=== PATIENT | male | born 1965 | race Caucasian/White ===

== ENCOUNTER 2016-04-19 08:00 | Emergency (ER) | payer OTHER ==
[2016-04-19 08:19] VITALS: BP 130/81
--- NOTE | 2016-04-19 08:39 | UC ---
Respiratory Complaint HPI - HPI Summary HPI Summary: dry cough for 2 weeks, no fever, no vomiting. Gradual onset of "heaviness" and discomfort in right chest, radiates to right scapula. It's there all the time, but worse with exertion. 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 No flu shot. Feels fatigued all day for past few weeks. Good appetite. No extremity swelling. No phlegm production, but frequent dry, harsh cough. No ST or sinus congestion. - History of Current Complaint Chief Complaint: UCChestPain Stated Complaint: CONGESTION DRY COUGH Time Seen by Provider: 04/19/16 08:27 Hx Obtained From: Patient Onset/Duration: Gradual Onset, Lasting Weeks - 2 Timing: Constant Severity Initially: Mild Severity Currently: Moderate Character: Cough: Nonproductive Aggravating Factors: Exertion, Recumbent Position - doesn't sleep well, wakes with cough and this right chest discomfort Alleviating Factors: Nothing Associated Signs And Symptoms: Positive: Dyspnea - with exertion, Pleuritic Chest Pain - right side, URI. Negative: Fever, Chills, Wheezing, Hemoptysis, Dizziness, Edema, Nasal Congestion, Hoarseness, Sinus Discomfort - Risk Factors Pulmonary Embolism Risk Factors: Negative Cardiac Risk Factors: Negative Pseudomonas Risk Factors: Negative Tuberculosis Risk Factors: Negative - Allergies/Home Medications Allergies/Adverse Reactions: Allergies Allergy/AdvReac Type Severity Reaction Status Date / Time No Known Allergies Allergy Verified 04/19/16 08:17 Home Medications: Home Medications Aspirin EC Low Dose* [Ecotrin EC Low Dose*] 81 mg PO DAILY 04/19/16 [History Confirmed 04/19/16] Valsartan TAB* [Diovan TAB*] 40 mg PO DAILY 04/19/16 [History Confirmed 04/19/16 ] PMH/Surg Hx/FS Hx/Imm Hx Cardiovascular History Of: Reports: Hypertension Respiratory History Of: Reports: Bronchitis - Surgical History Surgical History: None - Family History Known Family History: Positive: Hypertension - Social History 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 Lives: With Family Alcohol Use: None Substance Use Type: None Smoking Status (MU): Never Smoked Tobacco - Immunization History Most Recent Influenza Vaccination: Not the 2015/2016 Season Review of Systems Constitutional: Fatigue Skin: Negative Eyes: Negative ENT: Negative Respiratory: Shortness Of Breath - with exertion, Cough Cardiovascular: Negative - right side, through to right scapula, worse with cough or deep breath or exertion, Chest Pain Gastrointestinal: Negative Genitourinary: Negative Motor: Negative Neurovascular: Negative Musculoskeletal: Negative Neurological: Negative Psychological: Negative All Other Systems Reviewed And Are Negative: Yes Physical Exam Triage Information Reviewed: Yes Appearance: Well-Appearing, No Pain Distress, Well-Nourished Vital Signs: Initial Vital Signs Temp 98.7 F 04/19/16 08:12 Pulse 76 04/19/16 08:12 Resp 16 04/19/16 08:12 BP 130/81 04/19/16 08:12 Pulse Ox 100 04/19/16 08:12 Vital Signs Reviewed: Yes Eye Exam: Normal Neck exam: Normal Respiratory: Positive: Chest non-tender, No respiratory distress, No accessory muscle use, Respiratory distress, Decreased breath sounds - right base. Negative: Accessory muscle use, Crackles, Rhonchi, Stridor, Wheezing, Expiration , Inspiration, Plerual rub Cardiovascular Exam: Normal Abdominal Exam: Normal Musculoskeletal Exam: Normal Neurological Exam: Normal Neurological: Positive: Alert, Muscle Tone Normal Psychological Exam: Normal Skin Exam: Normal UC Diagnostic Evaluation - Laboratory O2 Sat by Pulse Oximetry: 100 Diagnostic Studies Comment: CXR normal; EKG unremarkable Respiratory Course/Dx - Differential Dx/Diagnosis Provider Diagnoses: pleurisy Discharge - Discharge Plan Condition: Stable Disposition: HOME Prescriptions: Meloxicam [Mobic] 15 mg PO DAILY PRN #20 tab PRN Reason: Pain Patient Education Materials: Pleurisy (ED) Forms: *Work Release Referrals: Robin Carranza MD [Primary Care Provider] -
--- NOTE | 2016-04-19 08:59 | RAD ---
INDICATION: Cough. Short of breath. COMPARISON: 2014 TECHNIQUE: PA and lateral dual-energy views were obtained. FINDINGS: Bones/Soft Tissues: There are no acute bony findings. There is kyphosis Cardiomediastinal: The cardiomediastinal silhouette is normal. Lungs: There are no infiltrates. Pleura: There are no pleural effusions. Other: None IMPRESSION: NO ACTIVE DISEASE.
== END 2016-04-19 09:17 | disposition home or self-care (01) ==
LOC: UCCORT 08:00
DX: R09.1 Pleurisy (principal); I10 Essential (primary) hypertension; Z79.82 Long term (current) use of aspirin
CPT/HCPCS: 71020; 93005; 99212; G0463

== ENCOUNTER 2018-09-09 15:56 | Emergency (ER) | payer OTHER ==
--- OUTSIDE RECORDS SUMMARY | 2018-09-09 16:11 | XMS REPORT | Continuity of Care Document ---
:1965 External Reference #:[id number] Author Name Della Schwarz Care Team Providers Name Role Phone Wyatt Sinha MD Primary Care Physician Unavailable Payers Date Identification Numbers Payment Provider Subscriber Policy Number: [id number] [facility] Judith Hemphill Group Number: [id number] [address] Group Name: [place] [address] PayID: [id number] Expires: 2017 Policy Number: [id number] [employer] Judith Hemphill Group Number: [id number] [address] Group Name: [place] [address] PayID: [id number] Effective: 1995 Policy Number: [employer] - Injury Judith Hemphill [id number] Compensation Onset: 1995 Group Name: Workers' Compensation [address] [place] [address] Effective: 2000 Group Number: OWCP # [employer] Injury Compensation Judith Hemphill [id number] Group Name: Workers' Compensation [address] [place] [address] Problems Active Problems Provider Date Lesion of ulnar nerve Loc Deleon MD Onset: 10/21/2017 Family History Date Family Member(s) Observation Comments General Arthritis, Osteo General Arthritis General Mother-heart disease,HTN,numerous shortly after surgery polyps removed from stomach and she General paternal grandmother-breast cancer General maternal grandmother-cancer General Brother(celeste)-[place] General Brother 1: due to Heart Attack Father Arthritis, Osteo Father Arthritis Father Heart Disease Mother due to Subsequent () - Gastric Polyps,removed stomach Mother Arthritis Mother Arthritis, Osteo Social History Type Date Description Comments Sex Unknown Marital Status Lives With Daughter Occupation [employer] Full-Time Employment Tobacco Use Start: Unknown Never Smoked Cigarettes ETOH Use Denies alcohol use Tobacco Use Reviewed: 01/10/17 Patient has never smoked Recreational Drug Use Denies Drug Use Smoking Status Reviewed: 08/29/18 Patient has never smoked Exercise Type/Frequency Exercises regularly Allergies, Adverse Reactions, Alerts Description No Known Drug Allergies Medications Active Medications SIG Qnty Indications Ordering Date Provider Plaquenil 1 by mouth every 30tabs Robin Herring, 08/29/2018 200mg Tablets day for 1 week M.D. then 2 by mouth daily ongoing Levothyroxine Sodium 1 by mouth every 90tabs Robin Herring, 11/08/2017 day M.D. 50mcg Tablets Compression Stockings please use daily 2units I83.891 Robin Herring, 07/29 as needed for M.D. Misc leg/foot swelling Ibuprofen 1 tab by mouth as Unknown 200mg Tablets needed three times daily History Medications Fluoxetine HCL 1 daily by 30tabs F41.9 Robin 01/19/2018 - 10mg mouth for 2 MD Dillon 08/29/2018 Tablets weeks the 1/2 tablet until finished Fluoxetine HCL (PMDD) 1 by mouth 30caps F41.9 Robin 01/02/2018 - every day MD Dillon 01/19/2018 20mg Capsules Omeprazole 1 by mouth bid 60caps Robin 11/18/2017 - 40mg Capsules MD Dillon 08/29/2018 Fluoxetine HCL (PMDD) 1 tablets 30tabs Robin 11/09/2017 - daily (start MD Dillon 01/02/2018 20mg Tablets with 1/2 tablet for the first week) Zolpidem Tartrate 1 every night 30tabs G47.00 Robin 10/27/2017 - 10mg at bedtime MD Dillon 08/29/2018 Tablets Losartan Potassium 1 by mouth 90tabs Robin 09/15/2017 - 50mg every day MD Dillon 11/18/2017 Tablets Zolpidem Tartrate 1 at bedtime 90tabs G47.00 Robin 05/18/2017 - 5mg MD Dillon 10/27/2017 Tablets Trazodone HCL 1 by mouth 90tabs G47.00 Robin 01/10/2017 - 50mg every day MD Dillon 11/18/2017 Tablets Naproxen 1 by mouth 60tabs M62.830 Robin 06/09/2016 - 500mg Tablets twice a day MD Dillon 06/22/2016 Cyclobenzaprine HCL 1 by mouth at 30tabs M62.830 Robin 06/09/2016 - 5mg hs MD Dillon 06/22/2016 Tablets Levoxyl 1 by mouth 30tabs G47.00 Robin 06/09/2016 - 75mcg Tablets every day MD Dillon 12/13/2016 Valsartan 1 by mouth 90tabs I10 Robin 04/15/2016 - 40mg Tablets every day MD Dillon 09/15/2017 Aspir-81 1 po qd Robin 01/18/2011 - 81mg Tablets DR Dillon MD 08/29/2018 Niaspan 1 tab by mouth 90tabs Robin 01/18/2011 - 500mg Tablets ER every day MD Dillon 01/18/2011 Zolpidem Tartrate 1 tab by mouth Unknown - 5mg weekly (rare) 02/16/2018 Tablets Trazodone HCL 1 tablet at Unknown - 50mg bedtime as 07/29/2017 Tablets needed Valsartan 1 by mouth Unknown - 50mg Tablets every day 10/20/2017 Aspir-Low 1 by mouth Unknown - 81mg Tablets DR every day (on 02/16/2018 hold) Diphenhydramine HCL Unknown - 50mg 10/20/2017 Capsules Multivitamin Men 50+ on occasion Unknown - Men 02/16/2018 50+ Tablets Melatonin 1 tablets at Unknown - 5mg Capsules bed time, as 02/16/2018 needed Losartan Potassium 1 by mouth Unknown - 50mg every day (on 02/16/2018 Tablets hold) Levothyroxine Sodium 1 by mouth Unknown - every day 08/29/2018 50mcg Tablets Fluoxetine HCL (PMDD) once daily Unknown - 08/29/2018 20mg Capsules BaclMarian Miramontes NP - 10mg Tablets 06/22/2016 Meloxicam Unknown - 15mg Tablets 01/10/2017 Baclofen Marian Oscar [employer] - 10mg Tablets 01/10/2017 Immunizations CPT Code Status Date Vaccine Lot # [id number] Given 03/12/2013 Tdap - Tetanus/Diptheria/Acellular Pertussis Vital Signs Date Vital Result Comment 08/29/2018 9:50am Height 70 inches 5'10" Weight 199.25 lb Heart Rate 83 /min BP Systolic Sitting 140 mmHg BP Diastolic Sitting 82 mmHg Pain Level 6 O2 % BldC Oximetry 99 % BMI (Body Mass Index) 28.6 kg/m2 02/16/2018 8:49am Height 70 inches 5'10" Weight 196.25 lb Heart Rate 84 /min BP Systolic Sitting 118 mmHg BP Diastolic Sitting 80 mmHg Pain Level 4 O2 % BldC Oximetry 98 % BMI (Body Mass Index) 28.2 kg/m2 01/19/2018 2:55pm Weight 189.00 lb BP Systolic 128 mmHg BP Diastolic 80 mmHg 12/15/2017 8:48am Weight 183.00 lb BP Systolic 138 mmHg BP Diastolic 82 mmHg Body Temperature 97.8 F 12/09/2017 11:42am Height 70 inches 5'10" Weight 181.00 lb BP Systolic Sitting 118 mmHg BP Diastolic Sitting 68 mmHg Respiratory Rate 17 /min Pain Level 0 BMI (Body Mass Index) 26.0 kg/m2 11/30/2017 11:08am Height 70 inches 5'10" Weight 181.00 lb Heart Rate 76 /min BP Systolic 126 mmHg BP Diastolic 82 mmHg Respiratory Rate 14 /min BMI (Body Mass Index) 26.0 kg/m2 11/28/2017 4:36pm Height 70 inches 5'10" Weight 181.00 lb Heart Rate 72 /min BP Systolic Sitting 130 mmHg BP Diastolic Sitting 85 mmHg Respiratory Rate 14 /min Pain Level 4 BMI (Body Mass Index) 26.0 kg/m2 11/23/2017 11:49am Weight 175.00 lb Heart Rate 80 /min BP Systolic 110 mmHg BP Diastolic 72 mmHg Respiratory Rate 16 /min 11/18/2017 9:42am Weight 178.12 lb Heart Rate 81 /min BP Systolic 100 mmHg BP Diastolic 80 mmHg Body Temperature 98.2 F 11/11/2017 8:47am Height 70 inches 5'10" Weight 181.00 lb Heart Rate 84 /min BP Systolic 126 mmHg BP Diastolic 84 mmHg BMI (Body Mass Index) 26.0 kg/m2 11/08/2017 8:16am Weight 179.00 lb Heart Rate 119 /min BP Systolic 110 mmHg BP Diastolic 84 mmHg Respiratory Rate 20 /min 10/31/2017 12:22pm Weight 186.00 lb Heart Rate 120 /min BP Systolic 120 mmHg BP Diastolic 90 mmHg Respiratory Rate 18 /min 10/26/2017 1:46pm Weight 189.00 lb Heart Rate 122 /min BP Systolic 132 mmHg BP Diastolic 90 mmHg Respiratory Rate 18 /min Body Temperature 99.1 F 10/21/2017 9:07am Height 70 inches 5'10" Weight 192.00 lb Heart Rate 73 /min BP Systolic 118 mmHg BP Diastolic 80 mmHg Respiratory Rate 16 /min Pain Level 5 O2 % BldC Oximetry 98 % BMI (Body Mass Index) 27.5 kg/m2 09/14/2017 10:09am Height 72 inches 6'0" Weight 194.00 lb Heart Rate 86 /min BP Systolic Sitting 125 mmHg BP Diastolic Sitting 84 mmHg Respiratory Rate 14 /min Pain Level 6 BMI (Body Mass Index) 26.3 kg/m2 07/29/2017 9:44am Height 72 inches 6'0" Weight 188.00 lb Heart Rate 78 /min BP Systolic Sitting 134 mmHg BP Diastolic Sitting 94 mmHg Respiratory Rate 14 /min Pain Level 3 BMI (Body Mass Index) 25.5 kg/m2 06/01/2017 2:25pm Weight 184.00 lb 05/18/2017 4:56pm BP Systolic 102 mmHg BP Diastolic 82 mmHg 04/28/2017 9:34am Height 71 inches Weight 179.00 lb BP Systolic 118 mmHg BP Diastolic 82 mmHg BMI (Body Mass Index) 25.0 kg/m2 04/12/2017 9:48am Height 71 inches Weight 185.00 lb Heart Rate 60 /min BP Systolic 120 mmHg BP Diastolic 82 mmHg Respiratory Rate 16 /min BMI (Body Mass Index) 25.8 kg/m2 02/03/2017 9:49am Weight 182.00 lb BP Systolic 118 mmHg BP Diastolic 72 mmHg 01/10/2017 1:31pm Weight 188.00 lb BP Systolic 110 mmHg BP Diastolic 80 mmHg 11/19/2016 9:49am Weight 189.50 lb BP Systolic 110 mmHg BP Diastolic 80 mmHg 08/03/2016 2:42pm Weight 188.00 lb BP Systolic 110 mmHg BP Diastolic 80 mmHg 07/13/2016 11:58am Weight 188.00 lb 06/22/2016 3:16pm Weight 189.00 lb BP Systolic 110 mmHg BP Diastolic 72 mmHg 06/09/2016 3:57pm Weight 187.00 lb BP Systolic 100 mmHg BP Diastolic 80 mmHg Body Temperature 98.2 F 04/15/2016 11:22am Weight 186.00 lb BP Systolic 120 mmHg BP Diastolic 86 mmHg 03/30/2016 10:00am Height 71 inches Weight 187.00 lb Heart Rate 72 /min BP Systolic 118 mmHg BP Diastolic 80 mmHg Respiratory Rate 16 /min Body Temperature 98.3 F BMI (Body Mass Index) 26.1 kg/m2 03/18/2015 1:09pm Height 71.25 inches Weight 190.00 lb Heart Rate 72 /min BP Systolic 110 mmHg BP Diastolic 80 mmHg Respiratory Rate 16 /min Body Temperature 98.1 F BMI (Body Mass Index) 26.3 kg/m2 03/13/2014 8:34am Height 71.25 inches Weight 194.00 lb Heart Rate 60 /min BP Systolic 116 mmHg BP Diastolic 88 mmHg Respiratory Rate 16 /min Body Temperature 97.9 F BMI (Body Mass Index) 26.9 kg/m2 01/31/2012 10:29am Height 71.25 inches Weight 189.00 lb Heart Rate 64 /min BP Systolic 118 mmHg BP Diastolic 90 mmHg Respiratory Rate 16 /min Body Temperature 97.9 F BMI (Body Mass Index) 26.2 kg/m2 01/18/2011 10:42am Height 71 inches Weight 195.50 lb Heart Rate 64 /min BP Systolic 116 mmHg BP Diastolic 88 mmHg Respiratory Rate 16 /min Body Temperature 98.0 F BMI (Body Mass Index) 27.3 kg/m2 Results Test Date Facility Test Result H/L Range Note CBC 01/05/2018 N2N/CCD Import Hematocrit 44.1 % 38-48 1 Hemoglobin 14.8 gm/dL 12.8-17 Mean Cell Volume 89.8 fl 80-96 Mean Corpuscular HGB 30.1 pg 27-33 Mean Corpuscular HGB Conc 33.6 g/dL 31.7-36 Mean Platelet Volume 9.9 fL 6.6-10.6 Platelet Count 267 K/uL 155-360 Red Blood Count 4.91 M/uL 4.2-5.8 Red Cell Distri Width %CV 13.7 % 11.6-15.8 White Blood Count 5.7 K/uL 3.4-10.5 Inflammatory Bowel 01/05/2018 N2N/CCD Import Atypical pANCA <1:20 titer 2, 3 Disease Saccharomyces cerevisiae, IgA < 20.0 units 0-24.9 4 Saccharomyces cerevisiae, IgG < 20.0 units 0-24.9 5 Laboratory test 01/05/2018 N2N/CCD Import C-Reactive < 2.9 mg/L finding Protein,Quant Ebv AB Vca,Igg <18.0 U/mL 0-17.9 6 Ebv AB Vca,Igm <36.0 U/mL 0-35.9 7 Ebv Early Antigen AB, IgG <9.0 U/mL 0-8.9 8 Ebv Interpretation (See Note) 9 Ebv Nuclear Antigen AB, Igg <18.0 U/mL 0-17.9 10 Liver Function Tests 12/15/2017 N2N/CCD Import A/G Ratio 1.7 1 1-2.5 Albumin 4.6 g/dL 3.6-5.1 11 Alkaline Phosphatase 63 U/L 40-115 Alt 17 U/L 9-46 Ast 19 U/L 10-35 Bilirubin,Direct 0.2 mg/dL Bilirubin,Total 1.0 mg/dL 0.2-1.2 Globulin,Calculated 2.6 g/dL 1.9-3.7 Protein,Total 7.2 g/dL 6.1-8.1 Comp Metabolic Panel 12/15/2017 N2N/CCD Import A/G Ratio 1.7 1 1-2.5 Albumin 4.6 g/dL 3.6-5.1 12 Alkaline Phosphatase 63 U/L 40-115 Alt 17 U/L 9-46 Ast 19 U/L 10-35 BUN/Creatinine Ratio 13.3 1 6-22 Bilirubin,Total 1.0 mg/dL 0.2-1.2 Calcium 9.6 mg/dL 8.6-10.3 Carbon Dioxide 33 mmol/L High 20-32 13 Chloride 100 mmol/L 98-110 Creatinine 0.94 mg/dL 0.7-1.33 14 Egfr 106 ML/MIN/1.73M2 Egfr Non-Afr. Sammarinese 92 ML/MIN/1.73M2 Globulin,Calculated 2.6 g/dL 1.9-3.7 Glucose 91 mg/dL 65-99 15 Potassium 4.6 mmol/L 3.5-5.3 Protein,Total 7.2 g/dL 6.1-8.1 Sodium 139 mmol/L 135-146 Urea Nitrogen (BUN) 13 mg/dL 7-25 CBS W/Automated Diff 12/15/2017 N2N/CCD Import Basophils,% 0 % 0-1 16 Basophils,Absolute 20 cells/uL 0-200 Eosinophils,% 0 % 0-4 Eosinophils,Absolute 40 cells/uL 15-500 Hematocrit 44.6 % 38.5-50 Hemoglobin 14.8 g/dL 13.2-17.1 Lymphocytes,Absolute 680 cells/uL Low 850-3900 MCH 29.6 pg 27-33 MCHC 33.1 g/dL 32-36 MCV 89.6 FL 80-100 MPV 8.8 FL 7.5-12.5 Monocytes,% 5 % 4-12 Monocytes,Absolute 430 cells/uL 200-950 Neutrophils,Absolute 6610 cells/uL 0993-5730 Platelet Count 274 thous/uL 140-400 RBC 4.98 mill/uL 4.2-5.8 RDW 14.7 % 11-15 Total Lymphocytes,% 9 % Low 12-47 Total Neutrophils,% 86 % High 40-75 WBC 7.8 thous/uL 3.8-10.8 Laboratory test finding 12/15/2017 N2N/CCD Import Amylase,Serum 67 U/L 21-101 Lipase,Serum 28 U/L 7-60 Beatrice Screen W/RFX Beatrice 11/18/2017 [facility] SS-A/Ro Antibody < 0.2 U [address] [place] [address] [phone] SS-B/La Antibody <0.2 U 18 Sm (Parker) IgG Antibody <0.2 U 19 LIEUTENANT GENERAL Antibody, IgG <0.2 U 20 Scl-70 (Scleroderma) Antibody <0.2 U 21 Angie-1 Antibody <0.2 U 22 Laboratory test 11/18/2017 [facility] Anti Double 38.2 IU/mL Abnormal [address] [place] [address] AB [phone] Ach Receptor Binding AB 0.00 nmol/L <=0.02 24 CBC W/Auto 11/18/2017 [facility] White Blood 5.8 10^3/uL N 3.5 -10.[address] [place] [address] [phone] Red Blood Count 5.01 10^6/uL N 4.00-5.40 Hemoglobin 14.8 g/dL N 14.0-18.0 Hematocrit 44 % N 42-52 Mean Corpuscular Volume 88 fL N 80-94 Mean Corpuscular Hemoglobin 30 pg N 27-31 Mean Corpuscular HGB Conc 34 g/dL N 31-36 Red Cell Distribution Width 13 % N 10.5-15 Platelet Count 272 10^3/uL N 150-450 Mean Platelet Volume 8.8 um3 N 7.4-10.4 Abs Neutrophils 4.4 10^3/uL N 1.5-7.7 Abs Lymphocytes 0.9 10^3/uL Low 1.0-4.8 Abs Monocytes 0.4 10^3/uL N 0-0.8 Abs Eosinophils 0 10^3/uL N 0-0.6 Abs Basophils 0 10^3/uL N 0-0.2 Abs Nucleated RBC 0 10^3/uL Granulocyte % 75.7 % N 38-83 Lymphocyte % 15.3 % Low 25-47 Monocyte % 7.7 % High 0-7 Eosinophil % 0.6 % N 0-6 Basophil % 0.7 % N 0-2 Nucleated Red Blood Cells % 0 Alkaline 11/18/2017 [facility] Alkaline 54 U/L 45 - [address] [place] [address] [phone] Alp Liver 1% 56.0 % 27.8-76.3 Alp Liver 1 30.2 IU/L 16.2-70.2 Alp Liver 2% 4.8 % 0.0-8.0 Alp Liver 2 2.6 IU/L 0.0-5.8 Alp Bone % 34.0 % 19.1-67.7 Alp Bone 18.4 IU/L 12.1-42.7 Alp Intestine % 5.2 % 0.0-20.6 Alp Intestine 2.8 IU/L 0.0-11.0 Alp Placental NotPresent 25 Laboratory test 11/18/2017 N2N/CCD Import Ach Receptor 0.00 nmol/L 26 finding Binding AB Alkaline Phosphatase 54 U/L 45-115 Alp Bone 18.4 IU/L 12.1-42.7 Alp Bone % 34.0 % 19.1-67.7 Alp Intestine 2.8 IU/L 0-11 Alp Intestine % 5.2 % 0-20.6 Alp Liver 1 30.2 IU/L 16.2-70.2 Alp Liver 1% 56.0 % 27.8-76.3 Alp Liver 2 2.6 IU/L 0-5.8 Alp Liver 2% 4.8 % 0-8 Alp Placental NotPresent 27 Anti Double Stranded Dna AB 38.2 IU/mL Abnormal 28 CBC Auto Diff 11/18/2017 [facility] Import Abs Basophils 0 10^3/uL 0-0.2 Abs Eosinophils 0 10^3/uL 0-0.6 Abs Lymphocytes 0.9 10^3/uL Low 1-4.8 Abs Monocytes 0.4 10^3/uL 0-0.8 Abs Neutrophils 4.4 10^3/uL 1.5-7.7 Abs Nucleated RBC 0 10^3/uL Basophil % 0.7 % 0-2 Eosinophil % 0.6 % 0-6 Granulocyte % 75.7 % 38-83 Hematocrit 44 % 42-52 Hemoglobin 14.8 g/dL 14-18 Lymphocyte % 15.3 % Low 25-47 Mean Corpuscular HGB Conc 34 g/dL 31-36 Mean Corpuscular Hemoglobin 30 pg 27-31 Mean Corpuscular Volume 88 fL 80-94 Mean Platelet Volume 8.8 um3 7.4-10.4 Monocyte % 7.7 % High 0-7 Nucleated Red Blood Cells % 0 1 Platelet Count 272 10^3/uL 150-450 Red Blood Count 5.01 10^6/uL 4-5.4 Red Cell Distribution Width 13 % 10.5-15 White Blood Count 5.8 10^3/uL 3.5-10.8 Beatrice Igg AB Reflex 11/18/2017 [facility] Import Angie-1 Antibody <0.2 U 29 L[place] GENERAL Antibody, IgG <0.2 U 30 SS-A/Ro Antibody <0.2 U 31 SS-B/La Antibody <0.2 U 32 Scl-70 (Scleroderma) Antibody <0.2 U 33 Sm (Parker) IgG Antibody <0.2 U 34 Laboratory test 11/07/2017 [facility]2N/[facility] Import Osmolality Serum 293 mOsm/kg 275-295 finding Urine Osmolality 390 mOsm/kg 150-1150 Basic Metabolic Panel 11/07/2017 N2N/[facility] Import Anion Gap 8 mmol/L 2-11 BUN/Creatinine Ratio 9.1 1 8-20 Blood Urea Nitrogen 9 mg/dL 6-24 Calcium 9.9 mg/dL 8.6-10.3 Chloride 101 mmol/L 101-111 Co2 Carbon Dioxide 30 mmol/L 22-32 Creatinine 0.99 mg/dL 0.67-1.17 Egfr 95.3 1 35 Egfr Non- 78.8 1 Glucose 103 mg/dL High 70-100 Potassium 4.4 mmol/L 3.5-5 Sodium 139 mmol/L 135-145 Laboratory test finding 10/29/2017 N2N/[facility] Import Aot Request Test(s) added 36 Tests to be added: direct bilirubin 37 Laboratory test 10/29/2017 [facility] Import Bilirubin,Direct 0.3 mg/dL High 0-0.2 38 finding D-Dimer, Quantitative < 0.27 ug/mL 39 Lipase 115 U/L 56-289 Source: Urine, Clean Cat <See Note> 40 Troponin-I < 0.015 ng/mL 41 Urine Bilirubin - Dipstick Negative Urine Blood Negative Urine Clarity Clear Urine Color Straw Urine Glucose - Dipstick Negative mg/dL Urine Ketone Negative mg/dL Urine Leuk Esterase Negative Urine Nitrite - Dipstick Negative Urine PH 6.0 1 Low 6.5-7.5 Urine Protein - Dipstick Negative mg/dL Urine Specific [place] <=1.005 Low 1.01-1.03 Urine Urobilinogen - Dipstick 0.2 E.U./dL 0.2-1 CBS W/Automated Diff 10/29/2017 N2N/[facility] Import Bas% 0.3 % 0-1.1 Baso # 0.02 K/uL 0-0.1 Eo% 0.3 % 0-6.6 Eos # 0.02 K/uL 0-0.5 Hematocrit 46.3 % 38-48 Hemoglobin 15.6 gm/dL 12.8-17 Lymph # 0.80 K/uL Low 1-4 Lymph % 10.0 % Low 20-42 Mean Cell Volume 88.0 fl 80-96 Mean Corpuscular HGB 29.7 pg 27-33 Mean Corpuscular HGB Conc 33.7 g/dL 31.7-36 Mean Platelet Volume 9.8 fL 6.6-10.6 Hanson # 0.48 K/uL 0-0.8 Hanson % 6.0 % 0-10 Neut# 6.65 K/uL 1.8-7 Neut% 83.4 % High 33-73 Platelet Count 271 K/uL 155-360 Red Blood Count 5.26 M/uL 4.2-5.8 Red Cell Distri Width %CV 13.2 % 11.6-15.8 Red Cell Distri Width SD 41.9 fl 36-51 White Blood Count 8.0 K/uL 3.4-10.5 Comprehensive Metabolic Panel 10/29/2017 N2N/CCD Import Alb/Glob 0.9 ratio Albumin 4.0 g/dL 3.4-5 Alkaline Phosphatase 70 U/L 45-117 Anion Gap 7 mEq/L Low 8-16 BUN 13 mg/dL 7-18 BUN/Creat 11.8 ratio Bilirubin,Total 1.3 mg/dL High 0.2-1 Calcium 9.6 mg/dL 8.5-10.1 Carbon Dioxide 29 mmol/L 21-32 Chloride 102 mmol/L 98-107 Creatinine 1.1 mg/dL 0.6-1.3 Globulin 4.3 g/dL 1.9-4.3 Glom Filtration Rate, Estimate >60 mL/min Glucose 106 mg/dL 74-106 If >60 mL/min 42 Potassium 4.1 mmol/L 3.5-5.1 SGPT/Alt 23 U/L 12-78 Sgot/Ast 15 U/L 15-37 Sodium 138 mmol/L 136-145 Total Protein 8.3 g/dL High 6.4-8.2 Lipid Panel 10/27/2017 N2N/CCD Import Cholesterol 165 mg/dL 43 Cholesterol/HDL Ratio 3.5 CALC HDL Cholesterol 47 mg/dL LDL Chol,Calculated 99 mg/dL 0-100 44 Non-HDL Cholesterol 118 mg/dL 45 Triglycerides 95 mg/dL Comp Metabolic Panel 10/27/2017 N2N/CCD Import A/G Ratio 1.7 1 1-2.5 Albumin 4.6 g/dL 3.6-5.1 Alkaline Phosphatase 59 U/L 40-115 Alt 15 U/L 9-46 Ast 22 U/L 10-35 BUN/Creatinine Ratio 13.1 1 6-22 Bilirubin,Total 1.3 mg/dL High 0.2-1.2 Calcium 9.7 mg/dL 8.6-10.3 Carbon Dioxide 23 mmol/L 20-32 46 Chloride 99 mmol/L 98-110 Creatinine 1.10 mg/dL 0.7-1.33 47 Egfr 88 ML/MIN/1.73M2 Egfr Non-Afr. Sammarinese 76 ML/MIN/1.73M2 Globulin,Calculated 2.7 g/dL 1.9-3.7 Glucose 83 mg/dL 65-99 48 Potassium 4.1 mmol/L 3.5-5.3 Protein,Total 7.3 g/dL 6.1-8.1 Sodium 136 mmol/L 135-146 Urea Nitrogen (BUN) 14 mg/dL 7-25 CBC (H/H,RBC,Indices,WBC,PLT) 10/27/2017 N2N/CCD Import Hematocrit 44.7 % 38.5-50 Hemoglobin 15.2 g/dL 13.2-17.1 MCH 30.0 pg 27-33 MCHC 34.0 g/dL 32-36 MCV 88.3 FL 80-100 MPV 9.1 FL 7.5-12.5 Platelet Count 268 thous/uL 140-400 RBC 5.07 mill/uL 4.2-5.8 RDW 14.2 % 11-15 WBC 7.5 thous/uL 3.8-10.8 Laboratory test finding 10/27/2017 N2N/CCD Import T4,Free 1.3 ng/dL 0.8- 1.8 TSH With Reflex To Free T4 6.10 mIU/L High 0.4-4.5 Laboratory test finding 10/13/2017 N2N/CCD Import Creatinine 0.94 mg/dL 0.67-1.17 Egfr 101.2 1 49 Egfr Non- 83.6 1 Homocyst(E)Ine, P/S 05/03/2017 N2N/CCD Import Homocysteine 7.7 UMOL/L 50 Laboratory test 05/03/2017 N2N/CCD Import Rick Pattern Speckled Abnormal 51 finding Rick Screen,Ifa,With Reflex To Titer And Pattern Positive Abnormal 52 Anti-Nuclear AB Titer 1:80 Titer Abnormal 53 C-Reactive Protein (CRP) 12.0 mg/L High Ebv Nuclear Ag(Ebna)(Igg) < 18.00 U/ML 54 Mitchell-Rueda Vca Igg AB < 18.00 U/ML 55 Mitchell-Rueda Vca Igm AB < 36.00 U/ML 56 Esr,Westergren 6 MM/HR 0-20 Comp Metabolic Panel 04/20/2017 N2N/CCD Import A/G Ratio 1.6 1 1-2.5 57 Albumin 4.3 g/dL 3.6-5.1 Alkaline Phosphatase 65 U/L 40-115 Alt 12 U/L 9-46 Ast 19 U/L 10-35 BUN/Creatinine Ratio 14.2 1 6-22 Bilirubin,Total 1.0 mg/dL 0.2-1.2 Calcium 9.2 mg/dL 8.6-10.3 Carbon Dioxide 28 mmol/L 20-31 Chloride 102 mmol/L 98-110 Creatinine 0.97 mg/dL 0.7-1.33 58 Egfr 102 ML/MIN/1.73M2 Egfr Non-Afr. Sammarinese 88 ML/MIN/1.73M2 Globulin,Calculated 2.7 g/dL 1.9-3.7 Glucose 94 mg/dL 65-99 59 Potassium 4.8 mmol/L 3.5-5.3 Protein,Total 7.0 g/dL 6.1-8.1 Sodium 138 mmol/L 135-146 Urea Nitrogen (BUN) 14 mg/dL 7-25 CBC 04/20/2017 N2N/CCD Import Hematocrit 44.4 % 38.5-50 Hemoglobin 14.7 g/dL 13.2-17.1 MCH 29.5 pg 27-33 MCHC 33.1 g/dL 32-36 MCV 89.3 FL 80-100 Platelet Count 262 thous/uL 140-400 RBC 4.98 mill/uL 4.2-5.8 RDW 14.3 % 11-15 WBC 5.0 thous/uL 3.8-10.8 Laboratory test 04/20/2017 N2N/CCD Import C-Reactive Protein 1.6 mg/L finding (CRP) Homocysteine 8.3 UMOL/L 60 PSA,Total 0.4 ng/mL 61 TSH With Reflex To Free T4 4.18 mIU/L 0.4-4.5 Thyroglobulin Antibodies 9 IU/mL High 62 Thyroid Peroxidase AB >900 Iu/ml High Laboratory test 04/20/2017 N2N/CCD Import Creatinine,Random Urine 61 mg/dL 20-370 63 finding Microalbumin,Random Urine <0.2 mg/dL Microalbumin/Creat Ratio Unable To Calcul <See Note> mcg/Mgcreat 64 CBC W/ Diff & PLT 02/11/2017 N2N/CCD Import Basophils,% 0 % 0-1 65, 66 Basophils,Absolute 20 cells/uL 0-200 Eosinophils,% 1 % 0-4 Eosinophils,Absolute 60 cells/uL 15-500 Hematocrit 42.6 % 38.5-50 Hemoglobin 14.1 g/dL 13.2-17.1 Lymphocytes,Absolute 980 cells/uL 850-3900 MCH 29.3 pg 27-33 MCHC 33.1 g/dL 32-36 MCV 88.6 FL 80-100 MPV 9.2 FL 7.5-12.5 Monocytes,% 8 % 4-12 Monocytes,Absolute 340 cells/uL 200-950 Neutrophils,Absolute 3110 cells/uL 8120-1882 Platelet Count 238 thous/uL 140-400 RBC 4.81 mill/uL 4.2-5.8 RDW 13.9 % 11-15 Total Lymphocytes,% 22 % 12-47 Total Neutrophils,% 69 % 40-75 WBC 4.5 thous/uL 3.8-10.8 Lyme Igg & Igm By 02/11/2017 N2N/CCD Import 18 KD (Igg) Band Nonreactive Western Blot 23 KD (Igg) Band Nonreactive 23 KD (Igm) Band Nonreactive 28 KD (Igg) Band Nonreactive 30 KD (Igg) Band Nonreactive 39 KD (Igg) Band Reactive Abnormal 39 KD (Igm) Band Nonreactive 41 KD (Igg) Band Nonreactive 41 KD (Igm) Band Nonreactive 45 KD (Igg) Band Nonreactive 58 KD (Igg) Band Nonreactive 66 KD (Igg) Band Nonreactive 93 KD (Igg) Band Nonreactive Lyme Disease (Igg),WB Negative 67 Lyme Disease (Igm),WB Negative 68 Laboratory test finding 02/11/2017 N2N/CCD Import Ebv Ea AB Igg < 9.00 U/ ML 69 Ebv Nuclear Ag (Ebna) AB (Igg) < 18.00 U/ML 70 Mitchell-Rueda Vca Igg AB < 18.00 U/ML 71 Mitchell-Rueda Vca Igm AB < 36.00 U/ML 72 Esr,Westergren 2 MM/HR 0-20 Hemoglobin A1c 5.2 % 0-5.6 73 Heterophile,Hanson Screen Negative Laboratory test 01/18/2017 N2N/CCD Import TSH With Reflex 3.13 mIU/L 0.4 -4.5 finding To Free T4 Thyroglobulin Antibodies 11 IU/mL High 74 CBC W/ Diff & PLT 01/18/2017 N2N/CCD Import Basophils,% 1 % 0-1 75 Basophils,Absolute 30 cells/uL 0-200 Eosinophils,% 2 % 0-4 Eosinophils,Absolute 100 cells/uL 15-500 Hematocrit 44.0 % 38.5-50 Hemoglobin 14.6 g/dL 13.2-17.1 Lymphocytes,Absolute 1160 cells/uL 850-3900 MCH 29.1 pg 27-33 MCHC 33.1 g/dL 32-36 MCV 87.8 FL 80-100 MPV 9.0 FL 7.5-12.5 Monocytes,% 7 % 4-12 Monocytes,Absolute 410 cells/uL 200-950 Neutrophils,Absolute 3840 cells/uL 3903-1535 Platelet Count 240 thous/uL 140-400 Platelet Sufficiency Normal RBC 5.01 mill/uL 4.2-5.8 RBC Morphology Normal RDW 13.9 % 11-15 Total Lymphocytes,% 21 % 12-47 Total Neutrophils,% 69 % 40-75 WBC 5.5 thous/uL 3.8-10.8 Laboratory test finding 11/11/2016 N2N/CCD Import T4,Free 0.8 ng/dL 0.8- 1.8 TSH With Reflex To Free T4 5.42 mIU/L High 0.4-4.5 Laboratory test finding 07/26/2016 N2N/CCD Import FSH 5.4 MIU/ML 1.6-8 76 LH 4.8 MIU/ML 1.5-9.3 77 TSH 0.60 mIU/L 0.4-4.5 Thyroglobulin Antibodies 13 IU/mL High 78 Thyroid Peroxidase AB 1126 IU/mL High Laboratory test 06/30/2016 N2N/CCD Import Surgical See Result 79, 80 finding Interface Order Below Laboratory test 06/04/2016 N2N/CCD Import T4,Free 0.8 ng/dL 0.8-1. 81 finding 8 TSH 4.41 mIU/L 0.4-4.5 Laboratory test finding 04/12/2016 N2N/CCD Import Hemoglobin A1c 5.6 % 0 -5.6 82 PSA,Total 0.4 ng/mL 83 T4,Free 0.8 ng/dL 0.8-1.8 TSH With Reflex To Free T4 5.52 mIU/L High 0.4-4.5 Vitamin D,25-Hydroxy,Total,Immunoassay 38 ng/mL 30-100 84 Comp Metabolic Panel 04/12/2016 N2N/CCD Import A/G Ratio 1.7 1 1-2.5 85 Albumin 4.2 g/dL 3.6-5.1 Alkaline Phosphatase 68 U/L 40-115 Alt 11 U/L 9-46 Ast 17 U/L 10-35 BUN/Creatinine Ratio 13.9 1 6-22 Bilirubin,Total 0.7 mg/dL 0.2-1.2 Calcium 8.9 mg/dL 8.6-10.3 Carbon Dioxide 27 mmol/L 20-31 Chloride 104 mmol/L 98-110 Creatinine 0.87 mg/dL 0.7-1.33 86 Egfr 114 ML/MIN/1.73M2 87 Egfr Non-Afr. Sammarinese 99 ML/MIN/1.73M2 Globulin,Calculated 2.5 g/dL 1.9-3.7 Glucose 101 mg/dL High 65-99 88 Potassium 4.2 mmol/L 3.5-5.3 Protein,Total 6.7 g/dL 6.1-8.1 Sodium 138 mmol/L 135-146 Urea Nitrogen 12 mg/dL 7-25 Hemogram W/ Platelet CT. 04/12/2016 N2N/CCD Import Hematocrit 41.3 % 38.5-50 Hemoglobin 13.6 g/dL 13.2-17.1 MCH 28.9 pg 27-33 MCHC 33.0 g/dL 32-36 MCV 87.7 FL 80-100 Platelet Count 241 thous/uL 140-400 89 RBC 4.71 mill/uL 4.2-5.8 RDW 13.6 % 11-15 WBC 6.1 thous/uL 3.8-10.8 Laboratory test 2016 N2N/CCD Import Act Partial 28.2 s 23.4-35 90 , 91 finding Thrombo Time CBS W/Automated 2016 N2N/CCD Import Bas% 0.4 % 0.1-1 Diff Baso # 0.04 K/uL Low 0.1-0.2 Eo% 0.9 % 0-5 Eos # 0.08 K/uL 0-0.5 Hematocrit 43.6 % 38-48 Hemoglobin 15.1 gm/dL 12.8-17 Lymph # 1.49 K/uL 1-4 Lymph % 16.4 % Low 20-42 Mean Cell Volume 87.0 fl 80-96 Mean Corpuscular HGB 30.1 pg 27-33 Mean Corpuscular HGB Conc 34.6 g/dL 31.7-36 Mean Platelet Volume 10.2 fL 6.6-10.6 Hanson # 0.78 K/uL 0-0.8 Hanson % 8.6 % 0-10 Neut# 6.67 K/uL 1.8-7 Neut% 73.7 % High 33-73 Platelet Count 256 K/uL 150-400 Red Blood Count 5.01 M/uL 4.2-5.8 Red Cell Distri Width %CV 13.4 % 11.6-15.8 Red Cell Distri Width SD 41.3 fl 36-51 White Blood Count 9.1 K/uL 3.4-10.5 Protime 2016 N2N/CCD Import Inr 1.0 1 0.9-1.1 92 Protime 13.1 s 12-14.4 Laboratory test 10/31/2015 N2N/CCD Import Duration Of Study 449 MINUTES 93 finding Fio2 21 1 21-100 Heart Rate 82 BPM Low Oximetry 86 % Low 93-98 Total Time Below 88% 0.3 MINUTES Laboratory test finding 10/30/2015 N2N/CCD Import Fio2 21 1 21-100 Heart Rate 102 BPM Oximetry 97 % 93-98 Patient Status Resting Laboratory test 10/08/2015 N2N/CCD Import Troponin-I < 0.015 ng/mL 94 , 95 finding Laboratory test 10/08/2015 N2N/CCD Import CK 119 U/L 39-308 finding Troponin-I < 0.015 ng/mL 96 CBC W/Automated Diff 10/08/2015 N2N/CCD Import Bas% 0.3 % 0.1-1 Baso # 0.02 K/uL Low 0.1-0.2 Eo% 0.7 % 0-5 Eos # 0.05 K/uL 0-0.5 Hematocrit 44.6 % 38-48 Hemoglobin 15.1 gm/dL 12.8-17 Lymph # 0.78 K/uL Low 1.8-7 Lymph % 10.9 % Low 17-56 Mean Cell Volume 87.3 fl 80-96 Mean Corpuscular HGB 29.5 pg 27-33 Mean Corpuscular HGB Conc 33.9 g/dL 31.7-36 Mean Platelet Volume 10.0 fL 6.6-10.6 Hanson # 0.39 K/uL 0-0.8 Hanson % 5.4 % 0-10 Neut# 5.92 K/uL 1.8-7 Neut% 82.7 % High 33-73 Platelet Count 242 K/uL 150-400 Red Blood Count 5.11 M/uL 4.2-5.8 Red Cell Distri Width %CV 13.1 % 11.6-15.8 Red Cell Distri Width SD 41.0 fl 36-51 White Blood Count 7.2 K/uL 3.4-10.5 Comprehensive Metabolic Panel 10/08/2015 N2N/CCD Import Alb/Glob 1.1 ratio Albumin 4.1 g/dL 3.4-5 Alkaline Phosphatase 71 U/L 45-117 Anion Gap 7 mEq/L Low 8-16 BUN 9 mg/dL 7-18 BUN/Creat 9.0 ratio Bilirubin,Total 0.7 mg/dL 0.2-1 Calcium 9.1 mg/dL 8.5-10.1 Carbon Dioxide 28 mmol/L 21-32 Chloride 104 mmol/L 98-107 Creatinine 1.0 mg/dL 0.6-1.3 Globulin 3.8 g/dL 1.9-4.3 Glom Filtration Rate, Estimate >60 mL/min Glucose 106 mg/dL 74-106 If >60 mL/min 97 Potassium 3.9 mmol/L 3.5-5.1 SGPT/Alt 25 U/L 12-78 Sgot/Ast 17 U/L 15-37 Sodium 139 mmol/L 136-145 Total Protein 7.9 g/dL 6.4-8.2 Laboratory test 03/26/2015 N2N/CCD Import C-Reactive 1.95 mg/L finding Protein,Cardiac Homocyst(E)Ine, Plasma 7.3 umol/L 0-15 98 Prostate Specific Antigen 0.57 ng/mL 99 Basic Metabolic Panel 03/26/2015 N2N/CCD Import Anion Gap 4 mEq/L Low 8- 16 BUN 11 mg/dL 7-18 BUN/Creat 12.2 ratio Calcium 8.5 mg/dL 8.5-10.1 Carbon Dioxide 31 mmol/L 21-32 Chloride 105 mmol/L 98-107 Creatinine 0.9 mg/dL 0.6-1.3 Glom Filtration Rate, Estimate >60 mL/min Glucose 101 mg/dL 74-106 If >60 mL/min 100 Potassium 4.2 mmol/L 3.5-5.1 Sodium 140 mmol/L 136-145 CBC 03/26/2015 N2N/CCD Import Hematocrit 44.3 % 38-48 Hemoglobin 15.1 gm/dL 12.8-17 Mean Cell Volume 88.4 fl 80-96 Mean Corpuscular HGB 30.1 pg 27-33 Mean Corpuscular HGB Conc 34.1 g/dL 31.7-36 Mean Platelet Volume 10.3 fL 6.6-10.6 Platelet Count 248 K/uL 150-400 Red Blood Count 5.01 M/uL 4.2-5.8 Red Cell Distri Width %CV 13.3 % 11.6-15.8 White Blood Count 5.5 K/uL 3.4-10.5 LDL Cholesterol Profile 03/26/2015 N2N/CCD Import Cholesterol 142 mg/dL 101 HDL Cholesterol 44 mg/dL 102 LDL-Cholesterol 87 mg/dL 103 Triglycerides 56 mg/dL 104 Laboratory test 08/13/2014 N2N/CCD Import Polyp Colon And/Or See Note 105 finding Rectum Laboratory test 04/28/2014 N2N/CCD Import Rapid Influenza A (See Note) 106 finding B Antigen Laboratory test 03/13/2014 N2N/CCD Import Prostate Specific 0.53 ng/mL 107 finding Antigen LDL Cholesterol 03/13/2014 N2N/CCD Import Cholesterol 131 mg/dL 108 Profile HDL Cholesterol 38 mg/dL 109 LDL-Cholesterol 74 mg/dL 110 Triglycerides 94 mg/dL 111 CBC 03/13/2014 N2N/CCD Import Hematocrit 43.2 % 38-48 Hemoglobin 14.5 gm/dL 12.8-17 Mean Cell Volume 89.6 fl 80-96 Mean Corpuscular HGB 30.1 pg 27-33 Mean Corpuscular HGB Conc 33.6 g/dL 31.7-36 Mean Platelet Volume 10.3 fL 6.6-10.6 Platelet Count 261 K/uL 150-400 Red Blood Count 4.82 M/uL 4.2-5.8 Red Cell Distri Width %CV 13.2 % 11.6-15.8 White Blood Count 5.1 K/uL 3.4-10.5 LDL Cholesterol Profile 03/26/2013 N2N/CCD Import Cholesterol 145 mg/dL 120-200 HDL Cholesterol 43 mg/dL 29-83 LDL-Cholesterol 85 mg/dL 62-185 Triglycerides 86 mg/dL 16-231 CBC 03/26/2013 N2N/CCD Import Hematocrit 44.1 % 38-48 Hemoglobin 14.8 gm/dL 12.8-17 Mean Cell Volume 89.5 fl 80-96 Mean Corpuscular HGB 30.0 pg 27-33 Mean Corpuscular HGB Conc 33.6 g/dL 31.7-36 Mean Platelet Volume 10.1 fL 6.6-10.6 Platelet Count 258 K/uL 150-400 Red Blood Count 4.93 M/uL 4.2-5.8 Red Cell Distri Width %CV 13.0 % 11.6-15.8 White Blood Count 6.2 K/uL 3.4-10.5 Laboratory test 03/26/2013 N2N/CCD Import C-Reactive 1.57 mg/L 0-3 112 finding Protein,Cardiac Prostate Specific Antigen 0.55 ng/mL 0-4 113 LDL Cholesterol Profile 02/09/2012 N2N/CCD Import Cholesterol 139 mg/dL 120-200 HDL Cholesterol 40 mg/dL 29-83 LDL-Cholesterol 81 mg/dL 62-185 Triglycerides 92 mg/dL 16-231 Laboratory test 02/09/2012 N2N/CCD Import Prostate Specific 0.48 ng/mL 0 -4 114 finding Antigen Laboratory test 04/10/2011 N2N/CCD Import C-Reactive 1.64 mg/dL 0-3 115 finding Protein,Cardiac Prostate Specific Antigen 0.42 ng/mL 0-4 116 1 NO DX 2 R53.83, R19.7, R63.4, R63.0 3 The atypical pANCA pattern has been observed in a significant percentage of patients with ulcerative colitis, primary sclerosing cholangitis and autoimmune hepatitis. ASCA+/PANCA- Suggestive of Crohn's disease ASCA-/PANCA+ Suggestive of Ulcerative colitis Performed at: RN - [facility] [address] [id number] Plant Guard: Sugey Ordonez MD, Phone: [phone] Performed at: - [facility] [id number] Plant Guard: Narayan Berry MD, Phone: [phone] Negative <20.0 Equivocal 20.1 - 24.9 Positive >or=25.0 IgA and IgG antibody testing for S. cerevisiae is useful adjunct testing for differentiating Crohn's disease and ulcerative colitis. Close to 80% of Crohn's disease patients are positive for either IgA or IgG. In ulcerative colitis, less than 15% are positive for IgG and less than 2% are positive for IgA. Fewer than 5% are positive for either IgG or IgA antibody, and no healthy controls had antibody for both. 5 Negative <20.0 Equivocal 20.1 - 24.9 Positive >or=25.0 6 Negative <18.0 Equivocal 18.0 - 21.9 Positive >21.9 7 Negative <36.0 Equivocal 36.0 - 43.9 Positive >43.9 8 Negative < 9.0 Equivocal 9.0 - 10.9 Positive >10.9 9 EBV Interpretation Chart Interpretation EBV-IgM EA(D)-IgG VCA-IgG EBNA-IgG EBV Seronegative - - - - Early Phase + - - - Acute Primary + +or- + - Infection Convalescence/Past - +or- + + Infection Reactivated +or- + + + Infection + Antibody Present - Antibody Absent 10 Negative <18.0 Equivocal 18.0 - 21.9 Positive >21.9 11 WE RECEIVED YOUR HANDWRITTEN TEST ORDER. WE PERFORMED THE AMA DEFINED HEPATIC FUNCTION PANEL. IF THIS IS NOT WHAT YOU INTENDED TO ORDER, PLEASE CONTACT YOUR LOCAL WET WASH ASSEMBLER IMMEDIATELY AT SO THAT WE CAN ADJUST OUR BILLING APPROPRIATELY. YOU MAY ALSO INQUIRE ABOUT ALTERNATIVE OR ADDITIONAL TESTING. 12 WE RECEIVED YOUR HANDWRITTEN TEST ORDER. WE PERFORMED THE AMA DEFINED HEPATIC FUNCTION PANEL. IF THIS IS NOT WHAT YOU INTENDED TO ORDER, PLEASE CONTACT YOUR LOCAL WET WASH ASSEMBLER IMMEDIATELY AT SO THAT WE CAN ADJUST OUR BILLING APPROPRIATELY. YOU MAY ALSO INQUIRE ABOUT ALTERNATIVE OR ADDITIONAL TESTING. 13 Reference range for high altitude clients: 18-30 mmol/L 14 The upper reference limit for Creatinine is approximately 13% higher for people identified as -Sammarinese. 15 GLUCOSE REFERENCE RANGE BASED ON FASTING SPECIMEN. 16 Relative blood cell counts (%) should be compared with absolute cell counts (cells/mcL). Relative counts may not be clinically meaningful if the absolute count of one or more cell type is decreased. Reference ranges for relative cell counts derived from: A Manual of Laboratory and Diagnostics Tests, 9th Ed, [employer], 2015. Pediatric Reference Intervals, 7th Ed, [facility], 2011. 17 REFERENCE VALUE <1.0 (Negative) 18 REFERENCE VALUE <1.0 (Negative) 19 REFERENCE VALUE <1.0 (Negative) 20 REFERENCE VALUE <1.0 (Negative) 21 REFERENCE VALUE <1.0 (Negative) 22 REFERENCE VALUE <1.0 (Negative) Test Performed by: [address] [id number] Interpretation: Borderline (30.0-75.0) REFERENCE VALUE <30.0 (Negative) Test Performed by: [facility] - [address] [id number] ADDITIONAL INFORMATION This test was developed and its performance characteristics determined by [facility] in a manner consistent with CLIA requirements. This test has not been cleared or approved by the U.S. Food and Drug Administration. Test Performed by: [facility] - [address] [id number] REFERENCE VALUE Not present Test Performed by: [address] [id number] ADDITIONAL INFORMATION This test was developed and its performance characteristics determined by [facility] in a manner consistent with CLIA requirements. This test has not been cleared or approved by the U.S. Food and Drug Administration. Test Performed by: [address] [id number] 27 REFERENCE VALUE Not present Test Performed by: [address] [id number] Interpretation: Borderline (30.0-75.0) REFERENCE VALUE <30.0 (Negative) Test Performed by: [address] [id number] REFERENCE VALUE <1.0 (Negative) Test Performed by: [facility] - [facility] [address] [facility], [place] [address] 30 REFERENCE VALUE <1.0 (Negative) 31 REFERENCE VALUE <1.0 (Negative) 32 REFERENCE VALUE <1.0 (Negative) 33 REFERENCE VALUE <1.0 (Negative) 34 REFERENCE VALUE <1.0 (Negative) 35 Because ethnic data is not always readily available, this report includes an eGFR for both -Americans and non- Americans. The National Kidney Disease Education Program (NKDEP) does not endorse the use of the MDRD equation for patients that are not between the ages of 18 and 70, are , have extremes of body size, muscle mass, or nutritional status, or are non- or non-. According to the National Kidney Foundation, irrespective of diagnosis, the stage of the disease is based on the level of kidney function: Stage Description GFR(mL/min/1.73 m(2)) 1 Kidney damage with normal or decreased GFR 90 2 Kidney damage with mild decrease in GFR 60-89 3 Moderate decrease in GFR 30-59 4 Severe decrease in GFR 15-29 5 Kidney failure <15 (or dialysis) 36 Tests: direct bilirubin Instructions: 37 direct bilirubin 38 CHEST DISCOMFORT, HIGH BLOOD PRESSURE, FREQ URINAT 39 <=0.49 ug/mL - Low likelihood of DIC, DVT or Pulmonary Embolism >0.49 ug/mL - Additional testing should be done to rule out DIC, DVT, or Pulmonary embolism as clinically indicated. ([facility] has established a 97.89% negative predictive value for thrombotic disease when a cutoff value of 0.5 ug/mL is used.) 40 URINE, CLEAN CATCH 41 0.0 - 0.045 ng/mL: Normal 0.046 - 0.5 ng/mL: Suggestive 0.6 - 1.5 ng/mL: Consistent 42 Note: Persistent reduction for 3 months or more in an eGFR <60 mL/min/1.73 m2 defines CKD. Patients with eGFR values >/=60 mL/min/1.73 m2 may also have CKD if evidence of persistent proteinuria is present. The original MDRD equation for estimated GFR is not valid for patients less than 18 years of age. Additional information may be found at www.kdoqi.org. 43 FASTING 44 LDL-C is now calculated using the Sylvester-Schmidt calculation, which is a validated novel method providing better accuracy than the Friedewald equation in the estimation of LDL-C. Sylvester SS et al.COTY.2013;310(19):6454-5137 Desirable range <100 mg/dL for primary prevention; <70 mg/dL for patients with CHD or diabetic patients with >or=2 CHD risk factors. For additional information, please refer to http://education.CTSpace.Yakimbi/faq/HGG106(This link is being provided for informational/educational purposes only.) 45 For patients with diabetes plus 1 major ASCVD risk factor, treating to a non-HDL-C goal of <100 mg/dL (LDL-C of <70 mg/ dL) is considered a therapeutic option. 46 Reference range for high altitude clients: 18-30 mmol/L 47 The upper reference limit for Creatinine is approximately 13% higher for people identified as -Sammarinese. 48 GLUCOSE REFERENCE RANGE BASED ON FASTING SPECIMEN. 49 Because ethnic data is not always readily available, this report includes an eGFR for both -Americans and non- Americans. The National Kidney Disease Education Program (NKDEP) does not endorse the use of the MDRD equation for patients that are not between the ages of 18 and 70, are , have extremes of body size, muscle mass, or nutritional status, or are non- or non-. According to the National Kidney Foundation, irrespective of diagnosis, the stage of the disease is based on the level of kidney function: Stage Description GFR(mL/min/1.73 m(2)) 1 Kidney damage with normal or decreased GFR 90 2 Kidney damage with mild decrease in GFR 60-89 3 Moderate decrease in GFR 30-59 4 Severe decrease in GFR 15-29 5 Kidney failure <15 (or dialysis) 50 Homocysteine is increased by functional deficiency of folate or vitamin B12. Testing for methylmalonic acid differentiates between these deficiencies. Other causes of increased homocysteine include renal failure, folate antagonists such as methotrexate and phenytoin, and exposure to nitrous oxide. 51 Speckled pattern is associated with mixed connective tissue disease (MCTD), systemic lupus erythematosis (SLE), Sjogren' s syndrome, dermatomyositis, and systemic sclerosis/polymyositis overlap. 52 RICK IFA is a first line screen for detecting the presence of up to approximately 150 autoantibodies in varius autoimmune diseases. A positive RICK IFA result is suggestive of autoimmune disease and reflexes to titer and pattern. Further laboratory testing may be considered if clinically indicated. TITER INTERPRETATION ----- <1:40 NEGATIVE 1:40 - 1:80 LOW ANTIBODY LEVEL >1:80 ELEVATED ANTIBODY LEVEL Visit Physician FAQs for interpretation of all antibodies in the [place], prevalence, and association with diseases at http://education.CTSpace.Yakimbi/faq/FHH030 53 A low level RICK titer may be present in pre-clinical autoimmune diseases and normal individuals. 54 U/mL RESULTS INTERPRETATION ------- < 18.00 NEGATIVE NO EBNA IGG DETECTED 18.00-21.99 EQUIVOCAL EQUIVOCAL RESULT > 21.99 POSITIVE PRESENCE OF DETECTABLE EBNA IGG ANTIBODIES 55 U/ML RESULTS INTERPRETATION ------- < 18.00 NEGATIVE NO EBV VCA IGG DETECTED 18.00-21.99 EQUIVOCAL EQUIVOCAL RESULT > 21.99 POSITIVE PRESENCE OF DETECTABLE VCA IGG ANTIBODIES 56 NO MITCHELL-RUEDA VIRUS ANTIBODY DETECTED U/ML RESULTS INTERPRETATION ------- < 36.00 NEGATIVE NO EBV VCA IGM DETECTED 36.00-43.99 EQUIVOCAL EQUIVOCAL RESULT > 43.99 POSITIVE PRESENCE OF DETECTABLE VCA IGM ANTIBODIES 57 PATIENT UNABLE TO VOID; ADVISED TO RETURN FOR COLLECTION. 58 The upper reference limit for Creatinine is approximately 13% higher for people identified as -Sammarinese. 59 GLUCOSE REFERENCE RANGE BASED ON FASTING SPECIMEN. 60 Homocysteine is increased by functional deficiency of folate or vitamin B12. Testing for methylmalonic acid differentiates between these deficiencies. Other causes of increased homocysteine include renal failure, folate antagonists such as methotrexate and phenytoin, and exposure to nitrous oxide. 61 The total PSA value from this assay system is standardized against the WHO standard. The test result will be approximately 20% lower when compared to the equimolar-standardized total PSA (Armond Romain). Comparison of serial PSA results should be interpreted with this fact in mind. This test was performed using the Siemens chemiluminescent method. Values obtained from different assay methods be used interchangeably. PSA levels, regardless of value, should not be interpreted as absolute evidence of the presence or absence of disease. 62 THIS SPECIMEN WAS FOUND TO CONTAIN ANTI-THYROGLOBULIN ANTIBODIES. THE PRESENCE OF THESE AUTOANTIBODIES MAY CAUSE FALSELY LOW THYROGLOBULIN VALUES. IN TG-ANTIBODY POSITIVE PATIENTS THE THYROGLOBULIN BY TANDEM MASS SPECTROMETRY [TEST CODE #61906 THYROGLOBULIN,LC/ MS/MS; OR PANEL TEST CODE #12777 THYROID CANDER (THYROGLOBULIN) MONITORING] TEST IS RECOMMENDED BECAUSE IT HAS NO INTERFERENCE FROM AUTOANTIBODIES. 63 SPLIT 04/20/2017 FROM [id number] 64 UNABLE TO CALCULATE The microalbumin value is less than 0.2 mg/dL therefore we are unable to calculate excretion and/or creatinine ratio. THE ADA (DIABETES CARE 26:S94-S98, 2003) DEFINES ABNORMALITIES IN ALBUMIN EXCRETION FOLLOWS: CATEGORY RESULT (MCG/MG CREATININE) -------- NORMAL <30 MICROALBUMINURIA 30 - 299 CLINICAL ALBUMINURIA > CI=962 THE ADA RECOMMENDS THAT AT LEAST TWO OF THREE SPECIMENS COLLECTED WITHIN A 3-6 MONTH PERIOD BE ABNORMAL BEFORE CONSIDERING A PATIENT TO BE WITHIN A DIAGNOSTICS CATEGORY. 65 FASTING 66 Relative blood cell counts (%) should be compared with absolute cell counts (cells/mcL). Relative counts may not be clinically meaningful if the absolute count of one or more cell type is decreased. Reference ranges for relative cell counts derived from: A Manual of Laboratory and Diagnostics Tests, 9th Ed, [employer], 2015. Pediatric Reference Intervals, 7th Ed, [facility], 2011. 67 IGG WESTERN BLOTS WHICH HAVE 5 (OR MORE) OF THE 10 SIGNIFICANT BANDS ARE CONSIDERED POSITIVE FOR SPECIFIC ANTIBODY TO B.BURGDORFERI. (PROCEEDINGS OF THE SECOND CONFERENCE OF LYME DISEASE. GRANGER, [place], 1993.) 68 IGM WESTERN BLOTS WHICH HAVE 2 (OR MORE) OF THE 3 SIGNIFICANT BANDS ARE CONSIDERED POSITIVE FOR SPECIFIC ANTIBODY TO B.BURGDORFERI. (PROCEEDINGS OF THE SECOND CONFERENCE OF LYME DISEASE. GRANGER, [place], 1993.) 69 U/mL RESULTS INTERPRETATION < 9.00 NEGATIVE NO EBV-EA IGG DETECTED 9.00-10.99 EQUIVOCAL EQUIVOCAL RESULT > 10.99 POSITIVE PRESENCE OF DETECTABLE EBV-EA IGG ANTIBODIES. For patients showing equivocal or positive EBV EA results, the potential exists for cross-reactivity with HIV (Human Immunodeficiency Virus) which could cause a false positive result. 70 U/mL RESULTS INTERPRETATION ------- < 18.00 NEGATIVE NO EBNA IGG DETECTED 18.00-21.99 EQUIVOCAL EQUIVOCAL RESULT > 21.99 POSITIVE PRESENCE OF DETECTABLE EBNA IGG ANTIBODIES 71 U/ML RESULTS INTERPRETATION ------- < 18.00 NEGATIVE NO EBV VCA IGG DETECTED 18.00-21.99 EQUIVOCAL EQUIVOCAL RESULT > 21.99 POSITIVE PRESENCE OF DETECTABLE VCA IGG ANTIBODIES 72 U/ML RESULTS INTERPRETATION ------- < 36.00 NEGATIVE NO EBV VCA IGM DETECTED 36.00-43.99 EQUIVOCAL EQUIVOCAL RESULT > 43.99 POSITIVE PRESENCE OF DETECTABLE VCA IGM ANTIBODIES INTERPRETATION IgM IgG EBNA and REPEAT CRITERIA: --- --- ---- - - - Negative No Mitchell-Rueda Virus Antibody detected. + - - Current (Acute) Suggestive of a current Mitchell-Rueda Virus Infection. + + - Current (Acute) Suggestive of a current Mitchell-Rueda Virus Infection. - + - Recent Suggestive of a recent Mitchell-Rueda Infection. In infants a similar pattern occurs as a result of passive maternal transfer of antibody. + + + Recent Suggestive of a recent Mitchell-Rueda infection. - + + Past Suggestive of a past Mitchell-Rueda Virus infection. In Infants,a similar pattern may occur as a result of passive maternal transfer of antibody. - - + Abnormal Pattern No definitive #1 interpretation can be made. This specimen exhibits an unusual antibody profile. + - + Abnormal Pattern No definitive #2 interpretation can be made. This specimen exhibits an unusual antibody profile. + + E Acute (Recent) This pattern of EBV markers is most consistent with acute EBV infectious mononucleosis or the early convalescent phase of a primary infection (recent). - E + No No definitive Interpretation interpretation can be made. This specimen exhibits equivocal results for one or more EBV markers. Suggest repeat testing in approximately two weeks if clinically indicated. + E - Acute Suggestive of an acute Mitchell-Rueda Virus infection. Repeat testing in approximately two weeks if clinically indicated. E + + Past or Recent This pattern is most consistent with a past Mitchell-Rueda Virus infection,but could also indicate a more recent infection. - + E Recent or Past Suggestive of a recent or past Mitchell-Rueda Virus infection. E + - Recent/Current This pattern is most consistent with a recent Mitchell-Rueda Virus infection,but could also indicate a more current infection. All other combinations that No definitive include equivocal result(s) interpretation can be made. This specimen exhibits equivocal results for one or more Mitchell-Rueda Virus markers. Suggest repeat testing in two weeks if clinically indicated. 73 For the purpose of screening for the presence of diabetes: <5.7% Consistent with the absence of diabetes 5.7-6.4% Consistent with the increased risk of diabetes (prediabetes) >or=6.5% Consistent with diabetes This assay result is conistent with a decreased risk of diabetes. Currently, no consensus exists regarding use of hemoglobin A1C for diagnosis of diabetes in children. According to [place] Diabetes Association (ADA) guidelines, hemoglobin A1C <7.0% represents optimal control in non- diabetic patients. Different metrics may apply to specific patient populations. Standards of Medical Care in Diabetes (ADA) FOR DIAGNOSTIC PURPOSES: A1C VALUE(% OF TOTAL HEMOGLOBIN) INTERPRETATION < 5.7 CONSISTENT WITH THE ABSENCE OF DIABETES 5.7 - 6.4 CONSISTENT WITH INCREASED RISK OF DIABETES > OR=6.5 CONSISTENT WITH DIABETES FOR MONITORING PURPOSES (ADA GUIDELINNES): A1C VALUE(% OF TOTAL HEMOGLOBIN) INTERPRETATION < 6.5 ACHIEVES STRINGENT GLYCEMIC GOAL < 7.0 ACHIEVES GENERAL GLYCEMIC GOAL(NON- ADULTS) < 8.0 ACHIEVES LESS STRINGENT GLYCEMIC GOAL 74 THIS SPECIMEN WAS FOUND TO CONTAIN ANTI-THYROGLOBULIN ANTIBODIES. THE PRESENCE OF THESE AUTOANTIBODIES MAY CAUSE FALSELY LOW THYROGLOBULIN VALUES. IN TG-ANTIBODY POSITIVE PATIENTS THE THYROGLOBULIN BY TANDEM MASS SPECTROMETRY [TEST CODE #74481 THYROGLOBULIN,LC/ MS/MS; OR PANEL TEST CODE #83911 THYROID CANDER (THYROGLOBULIN) MONITORING] TEST IS RECOMMENDED BECAUSE IT HAS NO INTERFERENCE FROM AUTOANTIBODIES. 75 Relative blood cell counts (%) should be compared with absolute cell counts (cells/mcL). Relative counts may not be clinically meaningful if the absolute count of one or more cell type is decreased. Reference ranges for relative cell counts derived from: A Manual of Laboratory and Diagnostics Tests, 9th Ed, [employer], 2015. Pediatric Reference Intervals, 7th Ed, [facility], 2011. 76 REFERENCE RANGE FEMALE MIU/ML FOLLICULAR 2.5 - 10.2 MID-CYCLE PEAK 3.1 - 17.7 LUTEAL 1.5 - 9.1 POSTMENOPAUSAL 23.0 - 116.3 MALE 1.6 - 8.0 77 REFERENCE RANGE FEMALE MIU/ML FOLLICULAR 1.9 - 12.5 MID-CYCLE PEAK 8.7 - 76.3 LUTEAL 0.5 - 16.9 POSTMENOPAUSAL 10.0 - 54.7 MALE 18 - 59 YRS 1.5 - 9.3 GREATER THAN OR EQUAL TO 60 YRS 1.6 - 15.2 78 THIS SPECIMEN WAS FOUND TO CONTAIN ANTI-THYROGLOBULIN ANTIBODIES. THE PRESENCE OF THESE AUTOANTIBODIES MAY CAUSE FALSELY LOW THYROGLOBULIN VALUES. IN TG-ANTIBODY POSITIVE PATIENTS THE THYROGLOBULIN BY TANDEM MASS SPECTROMETRY [TEST CODE #25208 THYROGLOBULIN,LC/ MS/MS; OR PANEL TEST CODE #87652 THYROID CANDER (THYROGLOBULIN) MONITORING] TEST IS RECOMMENDED BECAUSE IT HAS NO INTERFERENCE FROM AUTOANTIBODIES. 79 [id number] SEE RESULT BELOW Name: JUDITH HEMPHILL : [address]: Robin Carranza MD Acct: [id number] Unit: [id number] AGE: 51 Location: [facility] Re06/30/16 SEX: M Status: REG REF SPEC: [id number] CLAIRE: 06/30/16-1145 [facility] DR: Robin Carranza MD REQ: [id number] RECD: 06/30/16 STATUS: SOUT _ ORDERED: LEVEL 4 COMMENTS: [id number] FINAL DIAGNOSIS Skin, left shoulder, excisional biopsy: -- Ulcer and ulcer bed. -- No evidence of neoplasia. CLINICAL HISTORY Bleeding lesion left shoulder since 2016 PRE-OPERATIVE DIAGNOSIS Non-healing lesion left shoulder GROSS DESCRIPTION The specimen is received in formalin labeled, Left Shoulder Lesion, and consists of a 0.5 cm burgos-white circular skin punch excised to a depth of 0.3 cm which is bisected and submitted entirely in one cassette. Signed (signature on file) Karla Pierson MD 02/06 1558 END OF REPORT * ML=Testing performed at Main Lab DEPARTMENT OF PATHOLOGY, [address] [place] [address] Nik Jenkins M.D. Director [facility] # [id number] FASTING 82 According to ADA guidelines, hemoglobin A1c <7.0% represents optimal control in non- diabetic patients. Different metrics may apply to specific patient populations. Standards of Medical Care in Diabetes-2013. Diabetes Care. 2013;36:s11-s66 For the purpose of screening for the presence of diabetes: A1C VALUE INTERPRETATION <5.7% Consistent with the absence of diabetes 5.7 - 6.4% Consistent with increased risk for diabetes (prediabetes) > or=6.5% Consistent with diabetes Currently, no consensus exists regarding use of hemoglobin A1C for diagnosis of diabetes in children. 83 THIS TEST WAS PERFORMED USING THE SIEMENS CHEMILUMINESCENT METHOD. VALUES OBTAINED FROM DIFFERENT ASSAY METHODS CANNOT BE USED INTERCHANGEABLY. PSA LEVELS, REGARDLESS OF VALUE, SHOULD NOT BE INTERPRETED ABSOLUTE EVIDENCE OF THE PRESENCE OR ABSENCE OF DISEASE. 84 Vitamin D Status 25-OH Vitamin D: Deficiency: <20 ng/mL Insufficiency: 20-29 ng/mL Optimal: > or=30 ng/mL For 25-OH Vitamin D testing on patients on D2-supplementation and patients for whom quantitation of D2 and D3 fractions is required, the QuestAssureD 25-OH Vit D, (D2,D3),LC/MS/MS is recommended: Order code 29561 (patients >2 yrs). *FAX SENT REQUESTED TO [phone] *FAX SENT REQUESTED TO [phone] 86 The upper reference limit for Creatinine is approximately 13% higher for people identified as -Sammarinese. 87 *FAX SENT REQUESTED TO [phone] GLUCOSE REFERENCE RANGE BASED ON FASTING SPECIMEN. 89 *FAX SENT REQUESTED TO [phone] 90 BLEEDING BEHIND LT SHOULDER, WONTE STOP 91 Is patient on anticoagulants? None 92 THERAPEUTIC INR RANGE: 2.0 - 3.0 DVT, Pulmonary embolus, prophylaxis against venous thrombosis or systemic embolization in high risk patients. 2.5 - 3.5 Mechanical heart valves 93 SLEEP APNEA, UNSPECIFIED 94 CP, NAUSEA, SOMETIMES SOB 95 0.0 - 0.045 ng/mL: Normal 0.046 - 0.5 ng/mL: Suggestive 0.6 - 1.5 ng/mL: Consistent 96 0.0 - 0.045 ng/mL: Normal 0.046 - 0.5 ng/mL: Suggestive 0.6 - 1.5 ng/mL: Consistent 97 Note: Persistent reduction for 3 months or more in an eGFR <60 mL/min/1.73 m2 defines CKD. Patients with eGFR values >/=60 mL/min/1.73 m2 may also have CKD if evidence of persistent proteinuria is present. The original MDRD equation for estimated GFR is not valid for patients less than 18 years of age. Additional information may be found at www.kdoqi.org. 98 Performed at: RN - [facility] [address] [id number] Plant Guard: Sugey Ordonez MD, Phone: [phone] 99 THIS ASSAY IS NOT INTENDED A CANCER SCREENING TEST The concentration of PSA in a given specimen, determined with assays from different manufacturers, can vary due to differences in assay methods and reagent specificity. Values obtained from different assay methods cannot be used interchangeably. 100 Note: Persistent reduction for 3 months or more in an eGFR <60 mL/min/1.73 m2 defines CKD. Patients with eGFR values >/=60 mL/min/1.73 m2 may also have CKD if evidence of persistent proteinuria is present. The original MDRD equation for estimated GFR is not valid for patients less than 18 years of age. Additional information may be found at www.kdoqi.org. 101 Reference Guidelines*: Desirable: ........... < 200 mg/dL Borderline High: ..... 200-239 mg/dL High: ................ >=240 mg/dL * The National Cholesterol Education Program (NCEP) 102 Reference Guidelines*: Low HDL: ..... < 40 mg/dL Normal: ..... 40-60 mg/dL Desirable: ... > 60 mg/dL *The National Cholesterol Education Program(NCEP) 103 Reference Guidelines*: Optimal:........... <100 mg/dL Near Optimal....... 100-129 mg/dL Borderline High.... 130-159 mg/dL High............... 160-189 mg/dL Very High.......... >=190 mg/dL * Source: National Cholesterol Education Program (NCEP) 104 Reference Guidelines*: Normal: ............. < 150 mg/dL Borderline High: .... 150-199 mg/dL High: ............... 200-499 mg/dL Very High: .......... > 500 mg/dL * Source: National Cholesterol Education Program (NCEP) 105 OPERATION/PROCEDURE Colonoscopy, polypectomy DIAGNOSIS: "RECTAL POLYP": HYPERPLASTIC POLYP. Mayda 1013 GROSS The specimen is submitted in formalin in a container labeled, "RECTAL POLYP" and consists of a single piece of white-love tissue 0.3 x 0.2 x 0.2 cm. Submitted entirely in one block. NATTY/charisma PRE OPERATIVE DIAGNOSIS Screening colon REVIEW CODE CODE: I Signed Electronically signed MIREYA WESTBROOK MD [id number] 106 RUN DATE: 04/28/14 [facility] LAB LIVE PAGE 1 RUN TIME: [address] [place] [id number] Specimen Inquiry Name: JUDITH HEMPHILL : [address]: Yony Sarah MD Acct: [id number] Unit: [id number] AGE: 49 Location: [facility] Re04/28/14 SEX: M Status: DEP ER SPEC: [id number] CLAIRE: 04/28/[address]: Yony Sarah MD REQ: [id number] RECD: 04/28/147 STATUS: SIOBHAN GALLARDO DR: Robin Carranza MD _ [facility] ORDERED: Rapid Flu A B Procedure Result Verified Site Rapid Influenza A B Antigen Final 04/28/14- 1310 L Organism 1 Negative Influenza A B Antigen testing by enzyme immunoassay. Cell culture testing can be performed to confirm negative test results and to assist in detecting other viruses that can produce similar clinical symptoms. Please notify Microbiology Lab if further testing is desired. END OF REPORT * ML=Testing performed at Main Lab DEPARTMENT OF PATHOLOGY, [address] [place] [address] Nik Jenkins M.D. Director [facility] # [id number] 107 THIS ASSAY IS NOT INTENDED A CANCER SCREENING TEST The concentration of PSA in a given specimen, determined with assays from different manufacturers, can vary due to differences in assay methods and reagent specificity. Values obtained from different assay methods cannot be used interchangeably. 108 Reference Guidelines*: Desirable: ........... < 200 mg/dL Borderline High: ..... 200-239 mg/dL High: ................ >=240 mg/dL * The National Cholesterol Education Program (NCEP) 109 Reference Guidelines*: Low HDL: ..... < 40 mg/dL Normal: ..... 40-60 mg/dL Desirable: ... > 60 mg/dL *The National Cholesterol Education Program(NCEP) 110 Reference Guidelines*: Optimal:........... <100 mg/dL Near Optimal....... 100-129 mg/dL Borderline High.... 130-159 mg/dL High............... 160-189 mg/dL Very High.......... >=190 mg/dL * Source: National Cholesterol Education Program (NCEP) 111 Reference Guidelines*: Normal: ............. < 150 mg/dL Borderline High: .... 150-199 mg/dL High: ............... 200-499 mg/dL Very High: .......... > 500 mg/dL * Source: National Cholesterol Education Program (NCEP) 112 Relative Risk for Future Cardiovascular Event Low <1.00 Average 1.00 - 3.00 High >3.00 113 THIS ASSAY IS NOT INTENDED A CANCER SCREENING TEST The concentration of PSA in a given specimen, determined with assays from different manufacturers, can vary due to differences in assay methods and reagent specificity. Values obtained from different assay methods cannot be used interchangeably. 114 THIS ASSAY IS NOT INTENDED A CANCER SCREENING TEST The concentration of PSA in a given specimen, determined with assays from different manufacturers, can vary due to differences in assay methods and reagent specificity. Values obtained from different assay methods cannot be used interchangeably. 115 Relative Risk for Future Cardiovascular Event Low <1.00 Average 1.00 - 3.00 High >3.00 116 THIS ASSAY IS NOT INTENDED A CANCER SCREENING TEST The concentration of PSA in a given specimen, determined with assays from different manufacturers, can vary due to differences in assay methods and reagent specificity. Values obtained from different assay methods cannot be used interchangeably. Procedures Date Code Description Status 10/26/2017 69182 EKG Tracing & Interpretation Completed 06/30/2016 92018 Excision, Benign Trunk,Arms,Legs 0.6 CM To 1.0 CM Completed 08/13/2014 15807 Colonoscopy Flexible Diagnostic Completed 08/13/2014 [id number] Colonoscopy Completed 01/31/2012 86420 Pure Tone-Air Condition Only Completed 01/18/2011 42811 Visual funct screen test, automated Completed 01/18/2011 76830 Pure Tone-Air Condition Only Completed 01/13/2010 59569 Screening Vision Test Completed 01/13/2010 08449 Pure Tone-Air Condition Only Completed 01/08/2009 98136 Visual funct screen test, automated Completed 01/08/2009 39596 Noninvasive Ear Or Pulse Oximetry For Oxygen Saturation Completed 01/08/2009 46204 Pure Tone-Air Condition Only Completed 01/04/2008 43374 Screening Vision Test Completed 01/04/2008 80472 Pure Tone-Air Condition Only Completed Encounters Type Date Location Provider Dx Diagnosis Office Visit 02/16/2018 Rheumatology Robin Herring R74.8 Abnormal levels 9:00a [facility] of other serum enzymes M35.9 Systemic involvement of connective tissue, unspecified R76.0 Raised antibody titer R53.83 Other fatigue E06.9 Thyroiditis, unspecified Office Visit 12/09/2017 11:30a Orthopedic Loc Deleon G56.21 Lesion of [facility] AT ulnar nerve, [place] right upper limb Office Visit 11/30/2017 10:45a [place] [facility] Antonio Kwon G56.21 Lesion of [facility] Antonio M.D. ulnar nerve, right upper limb F41.9 Anxiety disorder, unspecified G47.00 Insomnia, unspecified Office Visit 11/28/2017 3:40p Rheumatology Robin M35.9 Systemic [facility] Her[facility] M.D. involvement of connective tissue, unspecified R76.0 Raised antibody titer R74.8 Abnormal levels of other serum enzymes R20.8 Other disturbances of skin sensation R39.11 Hesitancy of micturition Office Visit 11/11/2017 8:30a Orthopedic Services Loc G56.21 Lesion of ulnar Of [employer] AT MD keisha Fowler, right upper limb Office Visit 10/21/2017 9:00a Orthopedic Services Loc G56.21 Lesion of ulnar Of [employer] AT Walt Deleon MD nerve, right upper limb Office Visit 09/14/2017 10:00a Rheumatology Robin Nima, R76.0 Raised antibody [facility] Gabrielle titer R79.82 Elevated C-reactive protein (CRP) E06.9 Thyroiditis, unspecified 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 at [facility]08/29/2018 - Robin Herring M.D.M35.9 Systemic involvement of connective tissue, unspecifiedComments:Please avoid direct exposure to the sun as you are at risk for reactions from sun exposure. The bestway to prevent symptoms of photosensitivity is to limit the amount of time you spend in the sun. Many medications and medical conditions may increase the risk for photosensitivity.While sunscreen may help, covering and protecting your skin may also help prevent a reaction and this is the best way to prevent photosensitivity . People who are photosensitive can reduce symptoms by wearing hats, sunglasses, and long sleeves when outside.These simple tips can help protect your skin and help you live a healthy life. Anyone who is out in the sun for more than 20 minutes daily should apply sunscreen, but people who have lupus should be especially vigilant. Sunscreen should have a sun protection factor (SPF) of at least 30.Studies used to suggest that UVB rays -- the rays responsible for burning -- were most dangerous to people with lupus. But more recent research shows that UVA rays -- those responsible for wrinkling the skin -- can also aggravate lupus. With that in mind, you should look for broad- spectrum protection sunscreen that blocks both UVA and UVB rays.Apply sunscreen liberally: It takes at least 1 ounce of sunscreen to cover your entire body. Remember to reapply at least every 2 hours. Sweat, water, contact, and clothing can all rub off the sunscreen you've applied. People often forget toapply sunscreen to their necks, backs, and ears, all of which are commonly affected by photosensitivity related to lupus.dZ79.899 Other nursing home (current) drug obtvaxnZ87.001 Varicose veins of unspecified lower extremity with ulcer ofReferral:Conrad Massey MD, Surgery,MhrmaunD37.9 Thyroiditis, ayllcoffdqoC99.22 Impacted cerumen, left earReferral:Antonio Oshea MD, OtolaryngologyFollow up:Follow up in 2 months or sooner if needed
--- NOTE | 2018-09-09 16:13 | UC ---
Ear Complaint HPI - HPI Summary HPI Summary: 53 y/o male presents to the urgent care c/o left ear pain, w/ pressure, decrease hearing and sinus pain and yellowish drainage for the past 3 months. Pt reports Hx of sinusitis and ear infections. Pt reports he has an appt w/ ENT Dr Oshea in 1 week. Pt reports symptoms started w/ URI and seasonal allergies. 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 He has taken Decongestants and antihistamines and hydrogen peroxide w/o any improvement. Yesterday he developed a lot left ear pressure and pain and this morning he had 103F. 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 He took Ibuprofen 400mg PO and he felt better. Last dose taken was at 1500pm. Pt denies dizziness , SOB, chest pain, abdominal pain, GUSTAFSON, neck pain, N/V/D. - History of Current Complaint Stated Complaint: LEFT EAR PAIN/FEVER/SINUS Time Seen by Provider: 09/09/18 16:10 Hx Obtained From: Patient Onset/Duration: Gradual Onset, Lasting Weeks - 3 months of sinus congestion,, Worse Since - 2 days w/ left ear pain Severity Initially: Mild Severity Currently: Moderate Pain Intensity: 5 - left ear pain Pain Scale Used: 0-10 Numeric Aggravating Factors: Other - fever this morning of 103F Alleviating Factors: OTC Meds - Ibuprofen PO 200mg Associated Signs/Symptoms: Positive: Hearing Loss, URI Symptoms Related History: Seasonal Allergies - Allergies/Home Medications Allergies/Adverse Reactions: Allergies Allergy/AdvReac Type Severity Reaction Status Date / Time amoxicillin Allergy Intermediate Diarrhea Verified 09/09/18 16:12 Penicillins Allergy Intermediate Diarrhea Verified 09/09/18 16:12 Home Medications: Home Medications Hydroxychloroquine TAB* [Plaquenil TAB*] 200 mg PO BID 09/09/18 [History Confirmed 09/09/18] Ibuprofen TAB* [Advil TAB*] 200 mg TID 09/09/18 [History Confirmed 09/09/18] Levothyroxine TAB* [Synthroid TAB*] 50 mcg PO DAILY 09/09/18 [History Confirmed 09/09/18] PMH/Surg Hx/FS Hx/Imm Hx Previously Healthy: Yes Endocrine History: Hypothyroidism 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 - Surgical History Surgical History: None - Family History Known Family History: Positive: Cardiac Disease, Hypertension - Social History Occupation: Employed Full-time Lives: With Family Alcohol Use: None Substance Use Type: None Smoking Status (MU): Never Smoked Tobacco - Immunization History Most Recent Influenza Vaccination: Not the 2016/2016 Season Review of Systems All Other Systems Reviewed And Are Negative: Yes Constitutional: Positive: Fever - this morning of 103F, Fatigue Skin: Positive: Negative Eyes: Positive: Negative ENT: Positive: Ear Ache - left ear pain, Nasal Discharge - yellowish, Sinus Congestion, Sinus Pain/Tenderness, Other - PND Respiratory: Positive: Negative Cardiovascular: Positive: Negative Gastrointestinal: Positive: Negative Genitourinary: Positive: Negative Motor: Positive: Negative Neurovascular: Positive: Negative Musculoskeletal: Positive: Negative Neurological: Positive: Negative Psychological: Positive: Negative Is Patient Immunocompromised?: No Physical Exam - Summary Physical Exam Summary: Vital signs: reviewed General: well developed, well nourished female sitting in the examining table w/ o any apparent distress Skin: Wade, warm and dry, no evidence of atopic dermatitis, psoriasis, seborrhea. HEENT: Head and face: Normocephalic and atraumatic, Positive moderate tenderness over the frontal and maxillary sinuses on percussion -Eyes: sclera and conjunctiva clear, PERRLA, EOMI -Ears: no pre- or postauricular lymphadenopathy or erythema; RT external ear canal with erythema and yellowish purulent discharge, pinna tenderness on palpation, Rt TM WNL, LF external ear canal clear and LF TM WNL. TMs normal w/ out bulging or retraction. Good light reflex. No fluid level, vesicles, or bullae. No perforation. -Nose/Face: erythematous and edematous nasal mucosa with yellowish rhinorrhea, Positive yellowish PND -Mouth/Throat: Mucous membrane moist, posterior pharynx clear, no erythema or exudates. Neck: supple, FROM, nontender, no lymphadenopathy, no meningismus. Chest: Clear to auscultation, normal breath sounds Abd: soft, Bowel sounds active, Nontender. Back: no spinal or CVAT Neuro: A&O x4, GCS 15, no focal neuro deficits, normal behavior for age. Triage Information Reviewed: Yes Ear Complaint Course/Dx - Course Course Of Treatment: 53 y/o male presents to the urgent care c/o left ear pain, w/ pressure, decrease hearing and sinus pain and yellowish drainage for the past 3 months. Pt reports Hx of sinusitis and ear infections. Pt reports he has an appt w/ ENT Dr Oshea in 1 week. Pt reports symptoms started w/ URI and seasonal allergies. 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 He has taken Decongestants and antihistamines and hydrogen peroxide w/o any improvement. Yesterday he developed a lot left ear pressure and pain and this morning he had 103F. 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 He took Ibuprofen 400mg PO and he felt better. Last dose taken was at 1500pm. Pt denies dizziness , SOB, chest pain, abdominal pain, GUSTAFSON, neck pain, N/V/D. Hx obtained. Pt w/ left otitis media and acute bacterial sinusitis on examination. Pt with 3 months of symptoms getting worse. Pt PCN allergic. Pt Rx Doxycycline PO and flonase nasal spray. Advised to take Ibuprofen 600mg PO for pain and fever, rest and increase hydration. Discharge instructions explained to Pt. Advised to f/u w/ his r PCP or ENT DR Oshea if symptoms do not improve for further management. Pt understood and agreed with plan of care. Pt left clinic hemodynamically stable, A&OX3 - Differential Dx/Diagnosis Differential Diagnosis/HQI/PQRI: Cerumen Impaction, Otitis Externa, Otitis Media , Perforated TM, URI Provider Diagnosis: Left otitis media, Acute bacterial sinusitis Discharge - Sign-Out/Discharge Documenting (check all that apply): Patient Departure - D/C home All imaging exams completed and their final reports reviewed: No Studies - Discharge Plan Condition: Stable Disposition: HOME Prescriptions: DOXYcycline CAP(*) [DOXYcycline 100MG CAP(*)] 100 mg PO BID #20 cap Fluticasone NASAL SPRAY 50MCG* [Flonase NASAL SPRAY 50MCG*] 2 spray BOTH NARES DAILY #1 btl Patient Education Materials: Sinusitis (ED), Ear Infection (ED) Forms: *Work Release Referrals: Wyatt Sinha MD [Primary Care Provider] - 3 Days Antonio Oshea MD [Medical Doctor] - 3 Days Additional Instructions: 1- Please increase fluid intake and rest. take full course of antibiotics to avoid resistance. Take yogurts w/ probiotics or Culturelle to protect your GI system 2-Use Flonase as directed to help drain fluid. Also buy saline drops to clear sinuses 3-Continue taking Loratadine PO to alleviates sinus congestion 4- Take Ibuprofen 600mg PO q6-8hrs prn after meals to alleviate fever and ear pain 4-Please f/u w/ your PCP or your ENT Dr Oshea in 3 days if symptoms do not improve for further management and treatment - Billing Disposition and Condition Condition: STABLE Disposition: Home - Attestation Statements Provider Attestation: Patient not seen by me. I was available for consult
[2018-09-09 16:20] VITALS: BP 130/84
== END 2018-09-09 16:48 | disposition home or self-care (01) ==
LOC: UCCORT 15:56
DX: H66.92 Otitis media, unspecified, left ear (principal); J01.90 Acute sinusitis, unspecified; B96.89 Other specified bacterial agents as the cause of diseases classified elsewhere
CPT/HCPCS: 99212; G0463

== ENCOUNTER 2018-11-24 19:12 | Emergency (ER) | payer OTHER ==
--- OUTSIDE RECORDS SUMMARY | 2018-11-24 19:16 | XMS REPORT | Continuity of Care Document ---
:1965 External Reference #:[id number] Author Name Wyatt Sinha (transmitted by agent of provider Yesenia Gayle) Address [address] [place] [place] [address] Care Team Providers Name Role Phone Wyatt Sinha MD - Internal Medicine Care Team Information Probation Manager Problems Description No Information Available Social History Type Date Description Comments Sex Unknown ETOH Use Denies alcohol use Tobacco Use Start: Unknown Patient has never smoked Recreational Drug Use Denies Drug Use Exercise Type/Frequency Walks daily Guns in Home No Allergies, Adverse Reactions, Alerts Description No Known Drug Allergies Medications Active Medications SIG Qnty Indications Ordering Provider Date Levothyroxine Sodium 1 by mouth 90tabs Wyatt Sinha 50mcg every day Tablets Ibuprofen 200 1 by mouth Unknown 200mg Tablets every 6 hours as needed Rolaids Unknown 550-110mg Chewtabs Immunizations Description No Information Available Vital Signs Date Vital Result Comment 10/02/2018 12:16pm BP Systolic 120 mmHg BP Diastolic 80 mmHg Heart Rate 80 /min Height 71.5 inches 5'11.50" Weight 197.00 lb BMI (Body Mass Index) 27.1 kg/m2 04/18/2018 10:30am BP Systolic 144 mmHg BP Diastolic 84 mmHg Heart Rate 77 /min Height 71 inches 5'11" Weight 198.00 lb BMI (Body Mass Index) 27.6 kg/m2 O2 % BldC Oximetry 98 % Results Test Date Facility Test Result H/L Range Note TSH & T4,Free 06/06/2018 [facility] TSH 1.70 mIU/L 0.40-4.[address] [place] [address] [phone] T4,Free 1.1 ng/dL 0.8-1.8 Laboratory test 06/06/2018 [facility] C-Reactive Protein 2.7 mg/L <8.[address] (CRP) [place], [place] [id number] [phone] Esr,Westergren 2 MM/HR 0-20 Antinuclear AB 06/06/2018 [facility] Anti-Nuclear AB 1:80 Abnormal <1:40 2 [facility] Pattern [address] Titer TITER [place], [place] [id number] [phone] Akua Pattern SPECKLED Abnormal 3 CBC W/ Diff & PLT 06/06/2018 [facility] WBC 5.0 thous/L 3.8-10.[address] [place] [address] [phone] RBC 4.93 mill/L 4.20-5.80 Hemoglobin 14.4 g/dL 13.2-17.1 Hematocrit 43.1 % 38.5-50.0 MCV 87.5 FL 80.0-100.0 MCH 29.2 pg 27.0-33.0 MCHC 33.4 g/dL 32.0-36.0 RDW 14.3 % 11.0-15.0 Platelet Count 253 thous/L 140-400 MPV 8.8 FL 7.5-12.5 Neutrophils,Absolute 3530 cells/L 8511-9080 Bands,Absolute PENDING Metamyelocytes,Absolute PENDING Myelocytes,Absolute PENDING Promyelocytes,Absolute PENDING Lymphocytes,Absolute 910 cells/L 850-3900 Monocytes,Absolute 370 cells/L 200-950 Eosinophils,Absolute 140 cells/L 15-500 Basophils,Absolute 40 cells/L 0-200 Blast Cells,Absolute PENDING Nucleated RBC,Absolute PENDING Total Neutrophils,% 71 % 40-75 Bands,% PENDING Metamyelocytes,% PENDING Myelocytes,% PENDING Promyelocytes,% PENDING Total Lymphocytes,% 18 % 12-47 Reactive Lymphocytes PENDING Monocytes,% 7 % 4-12 Eosinophils,% 3 % 0-4 Basophils,% 1 % 0-1 4 Blasts,% PENDING Nucleated RBC PENDING Comment PENDING CMP W/GFR 06/06/2018 [facility] Sodium 136 mmol/L 135-[address] [place] [address] [phone] Potassium 4.1 mmol/L 3.5-5.3 Chloride 102 mmol/L 98-110 Carbon Dioxide 30 mmol/L 20-32 5 Calcium 8.7 mg/dL 8.6-10.3 Alkaline Phosphatase 66 U/L 40-115 Ast 20 U/L 10-35 Alt 12 U/L 9-46 Bilirubin,Total 0.9 mg/dL 0.2-1.2 Glucose 92 mg/dL 65-99 6 Urea Nitrogen (BUN) 14 mg/dL 7-25 Creatinine 0.99 mg/dL 0.70-1.33 7 BUN/Creatinine Ratio 14.2 6-22 Protein,Total 6.8 g/dL 6.1-8.1 Albumin 4.3 g/dL 3.6-5.1 Globulin,Calculated 2.5 g/dL 1.9-3.7 A/G Ratio 1.7 1.0-2.5 Egfr Non-Afr. Kittitian 85 ML/MIN/1.73M2 > Or = 60 Egfr 99 ML/MIN/1.73M2 > Or = 60 1 FASTING 2 A low level AKUA titer may be present in pre-clinical autoimmune diseases and normal individuals. 3 Speckled pattern is associated with mixed connective tissue disease (MCTD), systemic lupus erythematosis (SLE), Sjogren' s syndrome, dermatomyositis, and systemic sclerosis/polymyositis overlap. 4 Relative blood cell counts (%) should be compared with absolute cell counts (cells/mcL). Relative counts may not be clinically meaningful if the absolute count of one or more cell type is decreased. Reference ranges for relative cell counts derived from: A Manual of Laboratory and Diagnostics Tests, 9th Ed, [employer] Dar[employer] Viera, 2015. Pediatric Reference Intervals, 7th Ed, [employer], 2011. 5 Reference range for high altitude clients: 18-30 mmol/L 6 GLUCOSE REFERENCE RANGE BASED ON FASTING SPECIMEN. 7 The upper reference limit for Creatinine is approximately 13% higher for people identified as -Kittitian. Procedures Date Code Description Status 06/14/2018 97302 EKG-Tracing & Report Completed Medical Devices Description No Information Available Encounters Type Date Location Provider Dx Diagnosis Office Visit 10/02/2018 11:45a Main Office Wyatt Sinha E03.9 Hypothyroidism, unspecified E78.2 Mixed hyperlipidemia N40.0 Benign prostatic hyperplasia without lower urinry tract symp R53.82 Chronic fatigue, unspecified F41.1 Generalized anxiety disorder K58.0 Irritable bowel syndrome with diarrhea I87.2 Venous insufficiency (chronic) (peripheral) M79.9 Soft tissue disorder, unspecified Assessments Date Code Description Provider 10/02/2018 E03.9 Hypothyroidism, unspecified Gauss, Wyatt 10/02/2018 E78.2 Mixed hyperlipidemia Gauss, Wyatt 10/02/2018 N40.0 Benign prostatic hyperplasia without lower urinary Gauss, Wyatt tract sym 10/02/2018 R53.82 Chronic fatigue, unspecified Gauss, Wyatt 10/02/2018 F41.1 Generalized anxiety disorder Gauss, Wyatt 10/02/2018 K58.0 Irritable bowel syndrome with diarrhea Gauss, Wyatt 10/02/2018 I87.2 Venous insufficiency (chronic) (peripheral) Gauss, Wyatt 10/02/2018 M79.9 Soft tissue disorder, unspecified Gauss, Wyatt 06/14/2018 E78.2 Mixed hyperlipidemia Wyatt Sinha Plan of Treatment Future Appointment(s):12/22/2018 8:00 am - Nurse at Main Gqrigt1601/02/2019 10: 30 am - Wyatt Sinha at Main [employer]7110/02/2018 - Sage Sinha03.9 Hypothyroidism, wvesyuzhlhsB91.2 Mixed bxegdiyzubqgmaE64.0 Benign prostatic hyperplasia without lower urinary tract symComments:yearly digital examyearly psaSymptoms and signs reviewed and therapy such as medication, vitamins, diet supplements and their risks and benefits discussed. Symptom progression and referral to urology as appropriate for symptom progression and severity discussed and ordered. The importance of medication compliance when appropriate discussed and the effects of other medications such as antihistamines and OTC cold medicines considered and discussed with patient. Lab work as appropriate and follow up symptomatically and with EMILY yearly arrangedyearly digital examyearly psaSymptoms and signs reviewed and therapy such as medication, vitamins, diet supplements and their risks and benefits discussed. Symptom progression and referral to urology as appropriate for symptom progression and severity discussedand ordered. The importance of medication compliance when appropriate discussed and the effects of other medications such as antihistamines and OTC cold medicines considered and discussed with patient.Lab work as appropriate and follow up symptomatically and with EMILY yearly daewwhkjH41.82 Chronic fatigue , unspecifiedComments:Discussed importance of proper nutrition, vitamins and rest and interplay of stress and anxiety withsymptom flares. Appropriate medication with monitoring, need for compliance, side effects and followup discussed and care plan implemented.F41.1 Generalized anxiety disorderComments: Discussed treatment strategies and goals and effects of diet, exercise, environment, social stressors and OTC medications and supplements. Importance of medication compliance and follow up with mental health care associate stressed where appropriate. Generalized symptoms reviewed and noted and monitoring for increase in dysphoria and somatic symptoms discussed. Continued medication use reviewed as appropriate.K58.0 Irritable bowel syndrome with azhtdzbuH12.2 Venous insufficiency (chronic) (peripheral)Comments:Discussed use of Teds as indicated, measures to decrease venous pooling such as leg elevation , skin care and compromise. Monitor as necessary and diuretics if condition worsens with appropriate labs.M79.9 Soft tissue disorder, unspecified Functional Status Description No Information Available Mental Status Description No Information Available Referrals Description No Information Available
--- OUTSIDE RECORDS SUMMARY | 2018-11-24 19:16 | XMS REPORT | Continuity of Care Document ---
:1965 External Reference #:[id number] Author Name EDD Kaufman (transmitted by agent of provider Sara Chappell) Address [address] [place] [address] Care Team Providers Name Role Phone Robin Herring MD - Rheumatology Care Team Information Realtime Court Reporter Wyatt Sinha MD - Internal Medicine Care Team Information Realtime Court Reporter Problems Description No Information Available Social History Type Date Description Comments Sex Unknown Tobacco Use Start: Unknown Never Smoked Cigarettes Tobacco Use Start: Unknown No Second Hand Smoke Exposure Tobacco Use Start: Unknown Patient has never smoked Allergies, Adverse Reactions, Alerts Description No Known Drug Allergies Medications Active Medications SIG Qnty Indications Ordering Date Provider Hydroxychloroquine Sulfate takes 2 tablets Robin Herring, 200mg once daily MD Tablets Synthroid Wyatt Sinha, 50mcg Tablets MD Gabapentin Unknown 600mg Tablets Fluticasone Propionate Use 2 Coolspring(S) Unknown 50mcg/Act In Each Nostril Suspension Daily Immunizations Description No Information Available Vital Signs Date Vital Result Comment 11/21/2018 9:59am BP Systolic 165 mmHg states "white coat syndrome" BP Diastolic 94 mmHg states "white coat syndrome" Height 71 inches 5'11" Weight 198.25 lb BMI (Body Mass Index) 27.6 kg/m2 Heart Rate 99 /min Respiratory Rate 19 /min Body Temperature 99.0 F O2 % BldC Oximetry 97 % Results Description No Information Available Procedures Description No Information Available Medical Devices Description No Information Available Encounters Description No Information Available Assessments Description No Information Available Plan of Treatment No Information Available Functional Status Description No Information Available Mental Status Description No Information Available Referrals Description No Information Available
--- OUTSIDE RECORDS SUMMARY | 2018-11-24 19:16 | XMS REPORT | Continuity of Care Document ---
:1965 External Reference #:[id number] Author Name Antonio Oshea M.D. (transmitted by agent of provider Keon Israel) Address [address] [facility] [place] [address] Care Team Providers Name Role Phone Zulay Olmedo MD - Family Care Team Information Green Chain Worker Medicine Wyatt Sinha MD - Internal Care Team Information Green Chain Worker [phone] Medicine Problems Active Problems Provider Date Lesion of ulnar nerve Loc Deleon MD Onset: 10/21/2017 Social History Type Date Description Comments Sex Unknown Tobacco Use Start: Unknown Never Smoked Cigarettes Tobacco Use Start: Unknown Never Smoked Cigars Tobacco Use Start: Unknown Never Smoked A Pipe Smokeless Tobacco Never Used Smokeless Tobacco ETOH Use Denies alcohol use Tobacco Use Reviewed: 09/18/18 Patient has never smoked Recreational Drug Use Denies Drug Use Smoking Status Reviewed: 10/09/18 Patient has never smoked Exercise Type/Frequency Exercises regularly Allergies, Adverse Reactions, Alerts Active Allergies Reaction Severity Comments Date Penicillin Diarrhea 10/09/2018 Inactive Allergies NKDA 07/29/2017 Medications Active Medications SIG Qnty Indications Ordering Provider Date Plaquenil 2 by mouth 30tabs Robin Herring, 08/29/2018 200mg Tablets daily M.D. Levothyroxine Sodium 1 by mouth 90tabs Robin Herring, 11/08/2017 50mcg every day M.D. Tablets Ibuprofen 1 tab by mouth Unknown 200mg Tablets as needed three times daily Zyrtec Allergy take one tablet Unknown 10mg by mouth as Capsules needed Immunizations CPT Code Status Date Vaccine Lot # [id number] Given 03/12/2013 Tdap - Tetanus/Diptheria/Acellular Pertussis Vital Signs Date Vital Result Comment 10/09/2018 9:00am Height 71 inches 5'11" Weight 200.00 lb Heart Rate 82 /min BP Systolic Sitting 128 mmHg BP Diastolic Sitting 80 mmHg Respiratory Rate 12 /min Pain Level 0 O2 % BldC Oximetry 96 % BMI (Body Mass Index) 27.9 kg/m2 09/18/2018 8:50am Height 71 inches 5'11" Weight 199.00 lb Heart Rate 85 /min BP Systolic Sitting 116 mmHg BP Diastolic Sitting 74 mmHg Respiratory Rate 12 /min Pain Level 0 O2 % BldC Oximetry 97 % BMI (Body Mass Index) 27.8 kg/m2 Results Description No Information Available Procedures Date Code Description Status 09/18/2018 26084 Tympanometry Completed 08/13/2014 14227835 Colonoscopy Completed Medical Devices Description No Information Available Encounters Type Date Location Provider Dx Diagnosis Office Visit 09/18/2018 [facility], H91.92 Unspecified 8:45a C[facility] 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 08/29/2018 M35.9 Systemic involvement of connective tissue, Robin Herring M.D. 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 08/29/2018 I83.001 Varicose veins of unspecified lower extremity Robin Herring M.D. with ulcer of 08/29/2018 E06.9 Thyroiditis, unspecified Robin Herring M.D. 08/29/2018 H61.22 Impacted cerumen, left ear Robin Herring M.D. Plan of Treatment Future Appointment(s):11/06/2018 11:20 am - Robin Herring M.D. at [facility] Functional Status Functional Condition Comment Date Status Bifocal glasses Active Mental Status Description No Information Available Referrals Refer to Dr Reason for Referral Status Appt Date Antonio Oshea MD Please evaluate impacted ear wax Sent [address] [place], [place] [address] [phone] Conrad Massey MD Please evaluate varicose veins Sent [address] [place] [address] [place] [address] [phone]
--- OUTSIDE RECORDS SUMMARY | 2018-11-24 19:16 | XMS REPORT | Continuity of Care Document ---
:1965 External Reference #:[id number] Author Name Robin Herring M.D. (transmitted by agent of provider Della Schwarz) Address [address] [place] [address] Care Team Providers Name Role Phone Zulay Olmedo MD - Family Care Team Information Barrel Handler Medicine Wyatt Sinha MD - Internal Care Team Information Barrel Handler [phone] Medicine Problems Active Problems Provider Date Lesion [...] Use Denies Drug Use Smoking Status Reviewed: 11/06/18 Patient has never smoked Exercise Type/Frequency Exercises regularly Allergies, Adverse Reactions, Alerts Active Allergies Reaction Severity Comments Date Penicillin Diarrhea 10/09/2018 Inactive Allergies NKDA 07/29/2017 Medications Active Medications SIG Qnty Indications Ordering Provider Date Plaquenil Take 2 by mouth 180tabs Robin Herring, 08/29/2018 200mg Tablets daily M.D. Levothyroxine Sodium 1 by mouth 90tabs Robin Herring, 11/08/2017 every day M.D. 50mcg Tablets Ibuprofen 1 tab by mouth Unknown 200mg Tablets as needed three times daily Zyrtec Allergy take one tablet Unknown 10mg by mouth as Capsules needed Immunizations CPT Code Status Date Vaccine Lot # [id number] Given 03/12/2013 Tdap - Tetanus/Diptheria/Acellular Pertussis Vital Signs Date Vital Result Comment 11/06/2018 11:28am Height 71 inches 5'11" Weight 194.00 lb Heart Rate 102 /min BP Systolic Sitting 136 mmHg BP Diastolic Sitting 82 mmHg Pain Level 3 O2 % BldC Oximetry 98 % BMI (Body Mass Index) 27.1 kg/m2 10/09/2018 9:00am Height 71 inches 5'11" Weight 200.00 lb Heart Rate 82 /min BP Systolic Sitting 128 mmHg BP Diastolic Sitting 80 mmHg Respiratory Rate 12 /min Pain Level 0 O2 % BldC Oximetry 96 % BMI (Body Mass Index) 27.9 kg/m2 Results Description No Information Available Procedures Date Code Description Status 09/18/2018 90798 Tympanometry Completed 08/13/2014 94743140 Colonoscopy Completed Medical Devices Description No Information Available Encounters Type Date Location Provider Dx Diagnosis Office Visit 10/09/2018 [facility], H93.292 Other abnormal 9:00a [facility] auditory perceptions, left ear Office Visit 09/18/2018 [facility], H91.92 Unspecified 8:45a 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 unspecified 11/06/2018 Z79.899 Other snf (current) drug therapy Robin Herirng M.D. 11/06/2018 R05 Cough Robin Herring M.D. 11/06/2018 R53.83 Other fatigue Robin Herring M.D. 10/09/2018 H93.292 Other abnormal auditory perceptions, left ear Antonio Oshea M.D. 09/18/2018 H91.92 Unspecified hearing loss, left ear Antonio Oshea M.D. 08/29/2018 M35.9 Systemic involvement of connective tissue, Robin Herring M.D. 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 08/29/2018 I83.001 Varicose veins of unspecified lower extremity Robin Herring M.D. with ulcer of 08/29/2018 E06.9 Thyroiditis, unspecified Robin Herring M.D. 08/29/2018 H61.22 Impacted cerumen, left ear Robin Herring M.D. Plan of Treatment Future Appointment(s):04/23/2019 10:00 am - Robin Herring M.D. at [facility]11/06/2018 - Robin Herring M.D.M35.9 Systemic involvement of connective tissue, owxprebbvmzN33.899 Other terminal supervisor (current) drug shfivkoL56 CoughReferral:Solitario Parker MD, Allergy & WjnvvuiseiF69.83 Other fatigueFollow up:Follow up in 4 to 5 months or sooner if needed Functional Status Functional Condition Comment Date Status Bifocal glasses Active Mental Status Description No Information Available Referrals Refer to Dr Reason for Referral Status Appt Date Solitario Parker MD Please evaluate for allergic reaction to Created cough [address] [place] [address] [place] [address] [phone] Antonio Oshea MD Please evaluate impacted ear wax Sent [address] [place] [address] [phone] Conrad Massey MD Please evaluate varicose veins Sent [address] [address] [place] [address] [phone]
--- OUTSIDE RECORDS SUMMARY | 2018-11-24 19:17 | XMS REPORT | Continuity of Care Document ---
:1965 External Reference #:[id number] Author Name Wyatt Sinha (transmitted by agent of provider Janis Spence) Address [address] [address] Care Team Providers Name Role Phone Wyatt Sinha MD - Internal Medicine Care Team Information Foreign Student Adviser Problems Description No Information Available Social History [...] Lab TSH 1.70 mIU/L 0.40-4.[address] [place] [address] [phone] T4,Free 1.1 ng/dL 0.8-1.8 Laboratory test 06/06/2018 [facility] C-Reactive Protein 2.7 mg/L <8.[address] (CRP) [place], [place] [address] [phone] Esr,Westergren 2 MM/HR 0-20 Antinuclear AB 06/06/2018 [facility] Anti-Nuclear AB 1:80 Abnormal <1:40 2 [facility] Pattern [address] Titer TITER [place], [place] [address] [phone] Akua Pattern SPECKLED Abnormal 3 CBC W/ Diff & PLT 06/06/2018 [facility] WBC 5.0 thous/L 3.8-10.[address] [place] [address] [phone] RBC 4.93 mill/L 4.20-5.80 Hemoglobin 14.4 g/dL 13.2-17.1 Hematocrit 43.1 % 38.5-50.0 MCV 87.5 FL 80.0-100.0 MCH 29.2 pg 27.0-33.0 MCHC 33.4 g/dL 32.0-36.0 RDW 14.3 % 11.0-15.0 Platelet Count 253 thous/L 140-400 MPV 8.8 FL 7.5-12.5 Neutrophils,Absolute 3530 cells/L 9144-3684 Bands,Absolute PENDING Metamyelocytes,Absolute PENDING Myelocytes,Absolute PENDING Promyelocytes,Absolute [...] [facility] Sodium 136 mmol/L 135-[address] [place] [address] [phone] Potassium 4.1 mmol/L 3.5-5.3 Chloride 102 mmol/L [...] 1.9-3.7 A/G Ratio 1.7 1.0-2.5 Egfr Non-Afr. Guatemalan 85 ML/MIN/1.73M2 > Or = 60 Egfr [...] approximately 13% higher for people identified as -[place]atemalan. Procedures Date Code Description Status 06/14/2018 57831 EKG-Tracing & Report Completed Medical Devices Description [...] (chronic) (peripheral) M79.9 Soft tissue disorder, unspecified Office Visit 04/18/2018 10:30a Main Office Gauss, Wyatt E03.9 Hypothyroidism, unspecified N40.0 Benign prostatic hyperplasia without lower urinry tract symp R01.1 Cardiac murmur, unspecified R53.82 Chronic fatigue, unspecified I87.2 Venous insufficiency (chronic) (peripheral) F41.1 Generalized anxiety disorder K58.0 Irritable bowel syndrome with diarrhea K64.9 Unspecified hemorrhoids M06.849 Other specified rheumatoid arthritis, unspecified hand Assessments Date Code Description Provider 10/02/2018 E03.9 [...] unspecified Gauss, Wyatt 06/14/2018 E78.2 Mixed hyperlipidemia Gauss, Wyatt 04/18/2018 E03.9 Hypothyroidism, unspecified Gauss, Wyatt 04/18/2018 N40.0 Benign prostatic hyperplasia without lower urinary Gauss, Wyatt tract sym 04/18/2018 R01.1 Cardiac murmur, unspecified Gauss, Wyatt 04/18/2018 R53.82 Chronic fatigue, unspecified Gauss, Wyatt 04/18/2018 I87.2 Venous insufficiency (chronic) (peripheral) Gauss, Wyatt 04/18/2018 F41.1 Generalized anxiety disorder Gauss, Wyatt 04/18/2018 K58.0 Irritable bowel syndrome with diarrhea Gauss, Wyatt 04/18/2018 K64.9 Unspecified hemorrhoids Gauss, Wyatt 04/18/2018 M06.849 Other specified rheumatoid arthritis, unspecified hand Wyatt Sinha Plan of Treatment Future Appointment(s):12/22/2018 8:00 am - Nurse at Main Zlsfnl8301/02/2019 10: 30 am - Wyatt Sinha at Main Zqtugr5010/02/2018 - Mc SinhalE03.9 Hypothyroidism, ulpukjjwqpoD85.2 Mixed usgzbmrpnjrptyM44.0 Benign prostatic hyperplasia without lower urinary tract [...] follow up symptomatically and with EMILY yearly rmqngzgcY17.82 Chronic fatigue , unspecifiedComments:Discussed importance of proper [...] compliance and follow up with mental health daytime caregiver stressed where appropriate. Generalized symptoms reviewed and noted and monitoring for increase in dysphoria and somatic symptoms discussed. Continued medication use reviewed as appropriate.K58.0 Irritable bowel syndrome with jsrtuwwxR08.2 Venous insufficiency (chronic) (peripheral)Comments:Discussed use of Teds as indicated, measures to decrease venous pooling such as leg elevation , skin care and compromise. Monitor as necessary and diuretics if condition worsens with appropriate labs.M79.9 Soft tissue disorder, unspecified Functional Status Description No Information Available Mental Status Description No Information Available Referrals Description No Information Available
[2018-11-24 19:26] VITALS: BP 150/86
--- NOTE | 2018-11-24 19:59 | UC ---
Hand/Wrist HPI - HPI Summary HPI Summary: right pinky finger, swelling and painful, denies any acute injury. Started on Tuesday. history of autoimmune disease - History Of Current Complaint Chief Complaint: UCUpperExtremity Stated Complaint: RIGHT PINKY INJURY/PAIN Time Seen by Provider: 11/24/18 19:24 Hx Obtained From: Patient ?: No Onset/Duration: Sudden Onset, Lasting Days Severity Initially: Mild Severity Currently: Moderate Pain Intensity: 4 Aggravating Factor(s): Movement Associated Signs And Symptoms: Positive: Swelling, Redness - Allergies/Home Medications Allergies/Adverse Reactions: Allergies Allergy/AdvReac Type Severity Reaction Status Date / Time amoxicillin Allergy Intermediate Diarrhea Verified 11/24/18 19:26 Penicillins Allergy Intermediate Diarrhea Verified 11/24/18 19:26 Home Medications: Home Medications Cefdinir cap* [Cefdinir 300 MG cap (NF)] 300 mg PO BID 11/24/18 [History Confirmed 11/24/18] LevoCETirizine TAB (NF) [Xyzal TAB (NF)] 5 mg PO DAILY 11/24/18 [History Confirmed 11/24/18] predniSONE TAB* [Deltasone 20 MG TAB*] 20 mg PO BID 11/24/18 [History Confirmed 11/24/18] PMH/Surg Hx/FS Hx/Imm Hx Previously Healthy: Yes - Surgical History Surgical History: None - Family History Known Family History: Positive: Cardiac Disease, Hypertension - Social History Alcohol Use: None Substance Use Type: None Smoking Status (MU): Never Smoked Tobacco - Immunization History Most Recent Influenza Vaccination: Not the 2015/2016 Season Review of Systems All Other Systems Reviewed And Are Negative: Yes Skin: Positive: Other - redness and swelling Is Patient Immunocompromised?: No Physical Exam Triage Information Reviewed: Yes Appearance: Well-Appearing, Well-Nourished, Pain Distress Vital Signs: Initial Vital Signs Temp 98.1 F 11/24/18 19:21 Pulse 93 11/24/18 19:21 Resp 16 11/24/18 19:21 BP 150/86 11/24/18 19:21 Pulse Ox 100 11/24/18 19:21 Vital Signs Reviewed: Yes Eye Exam: Normal ENT Exam: Normal Dental Exam: Normal Neck exam: Normal Respiratory Exam: Normal Cardiovascular Exam: Normal Abdominal Exam: Normal Musculoskeletal: Positive: Strength Intact, ROM Intact, ROM Limited @ - in right pinky flexion, Edema @ - edema and erythema of the right DIP joint Neurological Exam: Normal Psychological Exam: Normal Skin Exam: Normal Hand/Wrist Course/Dx - Course Course Of Treatment: hx obtained, exam performed ,meds reviewed, xray appears to show possible avulsion of the DIP joint and possible fracture of the proximal phalangeal joint , splinted and will wait for the final read by the radiologist. 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 follow up with orthopedics and the Inspector Penetrant this week picked edge sewing machine operator the copy of the xray and report tomorrow afternoon. 2. Wear the splint for support 3. Ibuprofen will help with pain and inflammation - Billing Disposition and Condition Condition: STABLE Disposition: Home
== END 2018-11-24 20:08 | disposition home or self-care (01) ==
LOC: UCCORT 19:12
DX: S62.606A Fracture of unspecified phalanx of right little finger, initial encounter for closed fracture (principal); Z88.0 Allergy status to penicillin; X58.XXXA Exposure to other specified factors, initial encounter; Y92.9 Unspecified place or not applicable
CPT/HCPCS: 73140; 99212; G0463

== ENCOUNTER 2019-01-21 10:09 | Emergency (ER) | payer OTHER ==
[2019-01-21 10:46] VITALS: BP 135/87
--- NOTE | 2019-01-21 11:06 | UC ---
Hand/Wrist HPI - HPI Summary HPI Summary: 53-year-old male comes in with a chief complaint of bilateral hand pain. 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 2 days ago he started with pain in the joints of the right hand and fingers also the palm of the hand and the right wrist. Pain is worse with any kind of flexion or extension of the hand and wrist.'s been taking ibuprofen in the right hand is improving however he woke up this morning with the same symptoms and the left hand. At times it does feel slightly numb. Reports a small the fingers involved not just the first through third or fourth and fifth. No known specific trauma. He is undergoing a workup for arthritis with his primary care physician. - History Of Current Complaint Chief Complaint: UCUpperExtremity Stated Complaint: BILATERAL HAND COMPLAINT Time Seen by Provider: 01/21/19 10:43 Pain Intensity: 6 - Allergies/Home Medications Allergies/Adverse Reactions: Allergies Allergy/AdvReac Type Severity Reaction Status Date / Time amoxicillin Allergy Intermediate Diarrhea Verified 01/21/19 10:41 Penicillins Allergy Intermediate Diarrhea Verified 01/21/19 10:41 PMH/Surg Hx/FS Hx/Imm Hx Previously Healthy: Yes - rheumatoid arthritis Endocrine History: Hypothyroidism - Surgical History Surgical History: None - Family History Known Family History: Positive: Cardiac Disease, Hypertension - Social History Alcohol Use: None Substance Use Type: None Smoking Status (MU): Never Smoked Tobacco - Immunization History Most Recent Influenza Vaccination: Not the 2015/2016 Season Review of Systems All Other Systems Reviewed And Are Negative: Yes Constitutional: Positive: Negative Skin: Positive: Negative Eyes: Positive: Negative ENT: Positive: Negative Respiratory: Positive: Negative Cardiovascular: Positive: Negative Gastrointestinal: Positive: Negative Motor: Positive: Other - see hpi Neurovascular: Positive: Other - see hpi Musculoskeletal: Positive: Negative - see hpi Neurological: Positive: Other - see hpi Psychological: Positive: Negative Is Patient Immunocompromised?: No Physical Exam Triage Information Reviewed: Yes Appearance: Well-Appearing, No Pain Distress, Well-Nourished Vital Signs: Initial Vital Signs Temp 99.2 F 01/21/19 10:43 Pulse 94 01/21/19 10:43 Resp 15 01/21/19 10:43 BP 135/87 01/21/19 10:43 Pulse Ox 100 01/21/19 10:43 Vital Signs Reviewed: Yes Eye Exam: Normal Eyes: Positive: Conjunctiva Clear Neck: Positive: Supple Respiratory: Positive: No respiratory distress Musculoskeletal: Positive: Other: - Patient has pain with range of motion of fingers of both hands. Left is worse than right. He has decreased range of motion with making a fist on the left side secondary to pain. He does have pain with extension but he is able to extend fully. Negative Tinel's on the right mild pain with Tinel's on the left. Normal capillary refill. No sensation deficit appreciated on exam. Normal radial pulses. Elbows and shoulders have full range of motion full-strength. Full strength on exam of the right hand and wrist on the left there is decreased effort secondary to pain with movement of the fingers. Neurological: Positive: Alert Psychological: Positive: Age Appropriate Behavior Skin Exam: Normal Hand/Wrist Course/Dx - Course Course Of Treatment: Retail Client Solutions Analyst: Cirilo Mendez ([id number]) Brand Advocate: RADHA (SARAHANCE) Report Date: 01/21/2019 11:51:00 Report Status: Final Start of Report Content Patient Name: JUDITH HEMPHILL Medical Record#: [id number] Ordering Physician: Chirag Olea MD Acct.#: [id number] : 09/1965 Age: 53 Sex: M Location: [facility] Exam Date: 01/21/19 1054 ADM Status: REG ER Order Information: HANDS BILATERAL Accession Number: [id number] CPT: 44720 INDICATION: Bilateral hand pain. TECHNIQUE: 4 views of both hands were obtained. FINDINGS: Amorphic calcification is seen in the soft tissues surrounding the right fifth DIP. The bone mineralization is within normal limits. No fracture is identified. Anatomic alignment is maintained. There are with sclerotic margins annotated at the left third DIP and right fifth PIP/DIP. IMPRESSION: 1. No fracture identified. 2. Erosive changes with sclerotic margins which can be seen in setting of gout. 3. Amorphic calcification in the soft tissues surrounding the right fifth DIP could be passenger representative of a tophus. <Electronically signed by Cirilo Mendez MD in OV> 01/21/19 1148 Dictated By: Cirilo Mendez MD Dictated Date/Time: 01/21/19 1143 Transcribed Date/ Time: 01/21/19 114 Copy to: CC:Wyatt Sinha MD; Robin Herring MD; Chirag Olea MD Imaging - [facility] Imaging - [facility] [address] [place] [address] [address] [address] ph [phone] ph ) ph [phone]) End of Report Content I discussed the x-rays with the patient. X-rays are consistent with gout. We' ll treat with indomethacin 50 mg by mouth 3 times a day for 7 days. Patient reports in the past when his had prednisone his blood pressure was quite variable so it's better to avoid steroids at this time. Patient has no present history of GERD or peptic ulcer although he has a remote history of peptic ulcer when he was teenager. He's can be taking the indomethacin with food. CRP CBC and uric acid have all been drawn and results are pending. Follow-up his primary care doctor get reevaluated sooner if worse or any questions or concerns. - Differential Dx/Diagnosis Provider Diagnosis: Gout attack Discharge ED - Sign-Out/Discharge Documenting (check all that apply): Patient Departure All imaging exams completed and their final reports reviewed: Yes - Discharge Plan Condition: Stable Disposition: HOME Prescriptions: Indomethacin CAP* [Indocin CAP*] 50 mg PO TID PRN #21 cap PRN Reason: Pain - Moderate Patient Education Materials: Gout (ED) Forms: *Work Release Referrals: Wyatt Sinha MD [Primary Care Provider] - Additional Instructions: FOLLOW UP WITH YOUR DOCTOR. CRP, CBC and uric acid at work is pending. GET REEVALUATED SOONER IF NOT IMPROVING OR WORSE OR ANY QUESTIONS OR CONCERNS. - Billing Disposition and Condition Condition: STABLE Disposition: Home
[2019-01-22 11:18] LABS: ABS Eosinophils 0.1 10^3/ul (0-0.6); ABS Lymphocytes 0.7 10^3/ul (1.0-4.8); ABS Monocytes 0.6 10^3/ul (0-0.8); ABS Neutrophils 8.3 10^3/ul (1.5-7.7); Eosinophil % 0.6 %; Hematocrit 46 % (42-52); Hemoglobin 15.3 g/dL (14.0-18.0); Lymphocyte % 7.6 %; Mean Corpuscular HGB Conc 34 g/dL (31-36); Mean Corpuscular Hemoglobin 29 pg (27-31); Mean Corpuscular Volume 87 fL (80-94); Mean Platelet Volume 8.8 fL (7.4-10.4); Nucleated Red Blood Cells % 0.1; Platelet Count 262 10^3/uL (150-450); Red Blood Count 5.26 10^6 /uL (4.18-5.48); Red Cell Distribution Width 14 % (10-15); White Blood Count 9.7 10^3/uL (3.5-10.8)
[2019-01-22 11:32] LABS: C Reactive Protein 7.55 mg/L (<8.01); Uric Acid 4.2 mg/dL (4.4-7.6)
--- OUTSIDE RECORDS SUMMARY | 2019-01-23 16:00 | XMS REPORT | Continuity of Care Document ---
:1965 External Reference #:[id number] Author Name EDD Kaufman (transmitted by agent of provider Solitario Parker) Address 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 [phone] Wyatt Sinha MD - Internal Medicine Care Team Information Road Oiling Truck Driver [phone] Problems Active Problems Provider Date Allergic rhinitis due to pollen ANA KaufmnaC Onset: 2018 Cough Megan Rivera RPA-C Onset: 11/21/2018 Tinnitus of vascular origin Megan Rivera RPA-C Onset: 11/21/2018 Posterior rhinorrhea Megan Rivera RPA-C Onset: 11/21/2018 Allergic rhinitis Megan Rivera RPA-C Onset: 11/21/2018 Uncomplicated moderate persistent Megan Rivera RPA-C Onset: 2018 asthma Social History Type Date Description Comments Sex Unknown Tobacco Use Start: Unknown Never Smoked Cigarettes Tobacco Use Start: Unknown No Second Hand Smoke Exposure Tobacco Use Start: Unknown Patient has never smoked Smoking Status Reviewed: 11/21/18 Patient has never smoked Allergies, Adverse Reactions, Alerts Description No Known Drug Allergies Medications Active Medications SIG Qnty Indications Ordering Provider Date Ventolin HFA inhale 2 puffs 16gm R05 Solitario Lynn 108(90Base) by inhalation MD Keith 9 mcg/Act Aerosol route every 4 hours as needed Levocetirizine take one tablet 30tabs J30.89 Solitario Lynn Dihydrochloride by mouth daily MD Keith 9 5mg Tablets at bedtime Prednisone take one tablet 10tabs H93.A2 Solitario Bowden. 20mg Tablets by mouth twice a MD Keith 9 day x5 days. take with food. Cefdinir take one capsule 20caps Solitario Bowden. 300mg Capsules by mouth twice a MD Keith 9 day x10 days Hydroxychloroquine takes 2 tablets Robin Herring Sulfate once daily 0 200mg Tablets Synthroid Wyatt Sinha MD 50mcg Tablets 0 Gabapentin Unknown 600mg Tablets 0 Fluticasone Propionate Use 2 [place](S) Unknown In Each Nostril 0 50mcg/Act Suspension Daily History Medications Clarithromycin take one 20tabs R05 Solitario Lynn 11/21/2018 - 500mg tablet by MD Keith 11/21/2018 Tablets mouth q12 hours x10 days. Immunizations Description No Information Available Vital Signs Date Vital Result Comment 11/21/2018 9:59am BP Systolic 165 mmHg states "white coat syndrome" BP Diastolic 94 mmHg states "white coat syndrome" Height 71 inches 5'11" Weight 198.25 lb BMI (Body Mass Index) 27.6 kg/m2 Heart Rate 99 /min Respiratory Rate 19 /min Body Temperature 99.0 F O2 % BldC Oximetry 97 % Results Test Date Facility Test Result H/L Range Note Total IgE 11/21/2018 [facility] .Total IgE <pending> [address] [place] [address] [phone] Procedures Date Code Description Status 11/21/2018 96596 Nitric Oxide Gas Determination Completed 11/21/2018 31867 Allergy Tests Percutaneous W/ Allergenic Extracts Completed 11/21/2018 87410 Allergy Tests Percutaneous W/ Allergenic Extracts Completed 11/21/2018 64299 Bronchodilation Responsiveness Spirometry Pre/Post Completed Bronchodil Adm Medical Devices Description No Information Available Encounters Type Date Location Provider Dx Diagnosis Office Visit 11/21/2018 Walt Kwon J30.1 Allergic rhinitis due 10:00a Fenstermacher, RPA-C to pollen J30.89 Other allergic rhinitis R09.82 Postnasal drip H93.A2 Pulsatile tinnitus, left ear R05 Cough Assessments Date Code Description Provider 11/22/2018 R05 Cough Megan Ramonr, [facility] 11/21/2018 J30.1 Allergic rhinitis due to pollen Megan Ramonr, [facility] 11/21/2018 J30.89 Other allergic rhinitis Megan Montielacher, [facility] 11/21/2018 R09.82 Postnasal drip Megan Montielacher, [facility] 11/21/2018 H93.A2 Pulsatile tinnitus, left ear Megan Rosenbaumermacher, [facility] 11/21/2018 R05 Cough Megan Montielacher, [facility] 11/21/2018 J30.1 Allergic rhinitis due to pollen Solitario Parker MD 11/21/2018 J30.89 Other allergic rhinitis Solitario Parker MD Plan of Treatment Future Appointment(s):12/12/2018 2:30 pm - TYRA Lange at [id number] - Megan Rivera, [facility]J30.1 Allergic rhinitis due to pollenComments:Patient with sneezing, post nasal drip and pulsatile tinnitus of the left ear. I will screen for common seasonal and environmental allergies. I will check a total IgE level. I have advised patient to restart Flonase and use consistently. I will also give short course of Prednisone for persistent tinnitus. I will give Levocetirizine for breakthrough nasal symptoms.Follow up: 2 weeks - discussion of allergy test results and response to rlrsmtuzhjyJ39.89 Other allergic rhinitisNew Medication:Levocetirizine Dihydrochloride 5 mg - take one tablet by mouth daily at psxfjrrU35.82 Postnasal dripH93.A2 Pulsatile tinnitus, left earNew Medication:Prednisone 20 mg - take one tablet by mouth twice a day x5 days. take with food.R05 CoughNew Medication:Ventolin HFA 108(90 Base) mcg/Act - inhale 2 puffs by inhalation route every 4 hours as neededClarithromycin 500 mg - take one tablet by mouth q12 hours x10 days.Comments:Patient with worsening cough over the past five months and recent low-grade fevers. Patient with normal PFT and NIOX. I will order chest x-ray. I will give Biaxin for underlying infection. I will give Ventolin inhaler to use as needed for breakthrough coughing, wheezing and/or shortness of breath.Follow up:2 weeks. Functional Status Description No Information Available Mental Status Description No Information Available Referrals Description No Information Available
--- OUTSIDE RECORDS SUMMARY | 2019-01-23 16:00 | XMS REPORT | Continuity of Care Document ---
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 Problems Description No Information Available Social History Type Date Description Comments Sex Unknown ETOH Use Denies alcohol use Tobacco Use Start: Unknown Patient has never smoked Recreational Drug Use Denies Drug Use Exercise Type/Frequency Walks daily Guns in Home No Allergies, Adverse Reactions, Alerts Description No Known Drug Allergies Medications Active Medications SIG Qnty Indications Ordering Date Provider Levothyroxine Sodium 1 by mouth 90tabs Wyatt Sinha 50mcg every day Tablets Ibuprofen 200 1 by mouth Unknown 200mg Tablets every 6 hours as needed Hydroxychloroquine Sulfate 2 by mouth Unknown 200mg once a day Tablets Immunizations Description No Information Available Vital Signs Date Vital Result Comment 01/02/2019 10:33am BP Systolic 142 mmHg BP Diastolic 90 mmHg Heart Rate 104 /min Respiratory Rate 18 /min Height 71 inches 5'11" Weight 199.00 lb BMI (Body Mass Index) 27.8 kg/m2 O2 % BldC Oximetry 99 % 10/02/2018 12:16pm BP Systolic 120 mmHg BP Diastolic 80 mmHg Heart Rate 80 /min Height 71.5 inches 5'11.50" Weight 197.00 lb BMI (Body Mass Index) 27.1 kg/m2 Results Test Acquired Date Facility Test Result H/L Range Note TSH+Free T4 12/25/2018 [facility] TSH 3.62 mIU/L Normal 0.40-4.[address] [place] [address] [phone] T4, Free 1.0 ng/dL Normal 0.8-1.8 Laboratory test 12/25/2018 [facility] Sed Rate By 2 mm/h Normal < Or = finding [address] Modified [address] [place] [address] [facility]ly [facility] [phone] Enhanced PDF Report [id number] PDF IMAGE OFF Procedures Description No Information Available Medical Devices Description No Information Available Encounters Type Date Location Provider Dx Diagnosis Office Visit 10/02/2018 11:45a Main Office Gauss, Wyatt E03.9 Hypothyroidism, unspecified E78.2 Mixed hyperlipidemia N40.0 [...] M79.9 Soft tissue disorder, unspecified Gauss, Wyatt Plan of Treatment No Information Available Functional Status Description No Information Available Mental Status Description No Information Available Referrals Description No Information Available
--- OUTSIDE RECORDS SUMMARY | 2019-01-23 16:00 | XMS REPORT | Continuity of Care Document ---
:1965 External Reference #:[id number] Author Name Kendell Snow MD (transmitted by agent of provider Keon Israel) Address [address] [place] [address] Care Team Providers Name Role Phone Zulay Olmedo MD - Family Care Team Information [employer] [facility] Wyatt Sinha MD - Internal Care Team Information [employer] [phone] Medicine Problems Active Problems Provider Date Lesion [...] SIG Qnty Indications Ordering Date Provider Plaquenil Take 2 by mouth 180tabs Robin Herring 08/29/2018 200mg Tablets daily M.D. Levothyroxine Sodium 1 by mouth every 90tabs Robin Herring, 11/08/2017 day M.D. 50mcg Tablets Ibuprofen 1 tab by mouth Unknown 200mg Tablets as needed three times daily Zyrtec Allergy take one tablet Unknown 10mg by mouth as Capsules needed Cefdinir Take 1 Capsule Unknown 300mg Capsules By Mouth Twice Daily For 10 Days Prednisone Take 1 Tablet By Unknown 20mg Tablets Mouth Twice Daily With Food For 5 Days Ventolin HFA Inhale 2 Puffs Unknown 108(90Base) By Mouth Every 4 mcg/Act Aerosol Hours as Needed Fluticasone Propionate Use 2 [place](S) Unknown In Each Nostril 50mcg/Act Suspension Daily Immunizations CPT Code Status Date Vaccine Lot # [id number] Given 03/12/2013 Tdap - Tetanus/Diptheria/Acellular Pertussis Vital Signs Date Vital Result Comment 11/29/2018 10:21am Height 70 inches 5'10" Weight 203.38 lb Heart Rate 74 /min BP Systolic Sitting 146 mmHg BP Diastolic Sitting 80 mmHg Respiratory Rate 16 /min Body Temperature 99.6 F Pain Level 1 O2 % BldC Oximetry 98 % BMI (Body Mass Index) 29.2 kg/m2 11/06/2018 11:28am Height 71 inches 5'11" Weight 194.00 lb Heart Rate 102 /min BP Systolic Sitting 136 mmHg BP Diastolic Sitting 82 mmHg Pain Level 3 O2 % BldC Oximetry 98 % BMI (Body Mass Index) 27.1 kg/m2 Results Description No Information Available Procedures Date Code Description Status 09/18/2018 19488 Tympanometry Completed 08/13/2014 17755346 Colonoscopy Completed Medical Devices Description No Information Available Encounters Type Date Location Provider Dx Diagnosis Office Visit 11/06/2018 Rheumatology Robin Herring M35.9 Systemic 11:20a [facility] involvement of connective tissue, unspecified Z79.899 Other intermediate (current) drug therapy R05 Cough R53.83 Other fatigue Office Visit 10/09/2018 [facility] H93.292 Other abnormal 9:00a [facility] AT Walt Oshea M.D. auditory perceptions, left ear Office Visit 09/18/2018 [facility] H91.92 Unspecified 8:45a C.M.A. AT Walt Oshea M.D. 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 unspecified 11/06/2018 Z79.899 Other intermediate (current) drug therapy Robin Herring M.D. 11/06/2018 R05 Cough Robin Herring M.D. 11/06/2018 R53.83 Other fatigue Robin Herring M.D. 10/09/2018 H93.292 Other abnormal auditory perceptions, left ear Antonio Oshea M.D. 09/18/2018 H91.92 Unspecified hearing loss, left ear Antonio Oshea M.D. 08/29/2018 M35.9 Systemic involvement of connective tissue, Robin Herring M.D. unspecified 08/29/2018 Z79.899 Other intermediate (current) drug therapy Robin Herring M.D. 08/29/2018 I83.001 Varicose veins of unspecified lower extremity Robin Herring M.D. with ulcer of 08/29/2018 E06.9 Thyroiditis, unspecified Robin Herring M.D. 08/29/2018 H61.22 Impacted cerumen, left ear Robin Herring M.D. Plan of Treatment Future Appointment(s):04/23/2019 10:00 am - Robin Herring M.D. at [facility] Functional Status Functional Condition Comment Date Status Bifocal glasses Active Mental Status Description No Information Available Referrals Refer to Dr Reason for Referral Status Appt Date Solitario Parker MD Please evaluate for allergic reaction to Sent cough [address] [place], [place] [address] [phone] Antonio Oshea MD Please evaluate impacted ear wax Sent [address] [place], [place] [address] [phone] Conrad Massey MD Please evaluate varicose veins Sent [address] [place] [address] [place] [address] [phone]
--- OUTSIDE RECORDS SUMMARY | 2019-01-23 16:00 | XMS REPORT | Continuity of Care Document ---
:1965 External Reference #:[id number] Author Name TYRA Lange (transmitted by agent of provider Solitario Parker) Address [address] [place] [address] Care Team Providers Name Role Phone Robin Herring MD - Rheumatology Care Team Information Personal Chef Wyatt Sinha MD - Internal Medicine Care Team Information Personal Chef [phone] Problems Active Problems Provider Date Allergic rhinitis due to pollen Megan Rivera RPA-C Onset: 2018 Cough Megan Rivera RPA-C Onset: [...] Patient has never smoked Smoking Status Reviewed: 12/12/18 Patient has never smoked Allergies, Adverse Reactions, Alerts Description No Known Drug Allergies Medications Active Medications SIG Qnty Indications Ordering Provider Date Ventolin HFA inhale 2 puffs 16gm R05 Solitario Lynn 108(90Base) by inhalation MD Keith 9 mcg/Act Aerosol route every 4 hours as needed Levocetirizine take one tablet 90tabs J30.89 Solitario Lynn Dihydrochloride by mouth daily MD Keith 9 5mg Tablets at bedtime Hydroxychloroquine takes 2 tablets Robin Herring Sulfate once daily 0 200mg Tablets Synthroid Wyatt Sinha MD 50mcg Tablets 0 Gabapentin Unknown 600mg Tablets 0 Fluticasone Propionate Use 2 [place](S) Unknown In Each Nostril 0 50mcg/Act Suspension Daily History Medications Clarithromycin take one 20tabs R05 Solitario Lynn 11/21/2018 - 500mg tablet by MD Keith 11/21/2018 Tablets mouth q12 hours x10 days. Prednisone take one 10tabs H93.A2 Solitario Lynn 11/21/2018 - 20mg Tablets tablet by MD Keith 12/12/2018 mouth twice a day x5 days. take with food. Cefdinir take one 20caps Solitario Lynn 11/21/2018 - 300mg Capsules capsule by MD Keith 12/12/2018 mouth twice a day x10 days Immunizations Description No Information Available Vital Signs Date Vital Result Comment 12/12/2018 2:32pm BP Systolic 144 mmHg BP Diastolic 84 mmHg Height 71 inches 5'11" Weight 197.50 lb BMI (Body Mass Index) 27.5 kg/m2 Heart Rate 110 /min Respiratory Rate 17 /min Body Temperature 99.3 F O2 % BldC Oximetry 99 % 11/21/2018 9:59am BP Systolic 165 mmHg states [...] Allergy and Asthma .Total IgE <pending> [address] [place] [address] [phone] Procedures Date Code Description Status 11/21/2018 68119 Nitric Oxide Gas Determination Completed 11/21/2018 01190 Allergy Tests Percutaneous W/ Allergenic Extracts Completed 11/21/2018 73025 Allergy Tests Percutaneous W/ Allergenic Extracts Completed 11/21/2018 05012 Bronchodilation Responsiveness Spirometry Pre/Post Completed Bronchodil Adm Medical Devices Description No Information Available Encounters Type Date Location Provider Dx Diagnosis Office Visit 12/12/2018 2:30p TYRA Trevino J30.1 Allergic rhinitis due to pollen J30.89 Other allergic rhinitis R09.82 Postnasal drip H93.A2 Pulsatile tinnitus, left ear Office Visit 11/21/2018 10:00a Rhea Megan S. Fenstermacher, J30.1 Allergic RPA-C rhinitis due to pollen J30.89 Other allergic rhinitis R09.82 Postnasal drip H93.A2 Pulsatile tinnitus, left ear R05 Cough Assessments Date Code Description Provider 12/12/2018 J30.1 Allergic rhinitis due to pollen TYRA Lange 12/12/2018 J30.89 Other allergic rhinitis TYRA Lange 12/12/2018 R09.82 Postnasal drip TYRA Lange 12/12/2018 H93.A2 Pulsatile tinnitus, left ear TYRA Lange 11/22/2018 R05 Cough Megan S. Fenstermacher, RPA-C 11/21/2018 J30.1 Allergic rhinitis due to pollen Megan S. Fenstermacher, RPA -C 11/21/2018 J30.89 Other allergic rhinitis Megan S. Fenstermacher, RPA-C 11/21/2018 R09.82 Postnasal drip Megan S. Fenstermacher, RPA-C 11/21/2018 H93.A2 Pulsatile tinnitus, left ear Megan S. Fenstermacher, RPA-C 11/21/2018 R05 Cough Megan S. Fenstermacher, RPA-C 11/21/2018 J30.1 Allergic rhinitis due to pollen Solitario Parker MD 11/21/2018 J30.89 Other allergic rhinitis Solitario Parker MD Plan of Treatment 12/12/2018 - TYRA LangeJ30.1 Allergic rhinitis due to pollenComments:Patient 's environmental skin test showed 4+ positive to trees, weeds and grasses and 3 + positive to dust mites and 2+ positive to mixed feathers. Patient to use Flonase for prophylaxis of his nose andXyzal for breakthrough nasal symptoms. Patient to use Ventolin for breakthrough chest symptoms. Saline nasal rinse and HEPA air filter may help decrease allergens. Environmental controls discussed including dust mite proof pillow case and mattress covers. Patient is not interested in allergen immunotherapy injections at this time.Follow up: one year, sooner if needed.J30.89 Other allergic ivcnbxkjK80.82 Postnasal dripH93.A2 Pulsatile tinnitus, left ear Functional Status Description No Information Available Mental Status Description No Information Available Referrals Description No Information Available
--- OUTSIDE RECORDS SUMMARY | 2019-01-23 16:00 | XMS REPORT | Continuity of Care Document ---
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 Problems Description No Information Available Social History [...] H/L Range Note TSH+Free T4 12/25/2018 [facility] TSH 3.62 mIU/L Normal 0.40-4.[address] [place] [address] [phone] T4, Free 1.0 ng/dL Normal 0.8-1.8 Laboratory test 12/25/2018 [facility] Sed Rate By 2 mm/h Normal < Or = finding [address] Modified [address] [place] [address] [facility] [phone] Enhanced PDF Report [id number] PDF IMAGE OFF Procedures Description No Information Available Medical Devices Description No Information Available Encounters Type Date Location Provider Dx Diagnosis Office Visit 01/02/2019 10:30a Main Office Gauss, Wyatt G60.9 Hereditary and idiopathic neuropathy, unspecified E03.9 Hypothyroidism, unspecified R53.82 Chronic fatigue, unspecified F41.1 Generalized anxiety disorder K58.0 Irritable bowel syndrome with diarrhea I87.2 Venous insufficiency (chronic) (peripheral) M79.9 Soft tissue disorder, unspecified M06.849 Other specified rheumatoid arthritis, unspecified hand N40.0 Benign prostatic hyperplasia without lower urinry tract symp R00.2 Palpitations Office Visit 10/02/2018 11:45a Main Office Gauss, Wyatt E03.9 Hypothyroidism, unspecified E78.2 Mixed hyperlipidemia N40.0 Benign prostatic hyperplasia without lower urinry tract symp R53.82 Chronic fatigue, unspecified F41.1 Generalized anxiety disorder K58.0 Irritable bowel syndrome with diarrhea I87.2 Venous insufficiency (chronic) (peripheral) M79.9 Soft tissue disorder, unspecified Assessments Date Code Description Provider 01/02/2019 G60.9 Hereditary and idiopathic neuropathy, unspecified Gauss, Wyatt 01/02/2019 E03.9 Hypothyroidism, unspecified Gauss, Wyatt 01/02/2019 R53.82 Chronic fatigue, unspecified Gauss, Wyatt 01/02/2019 F41.1 Generalized anxiety disorder Gauss, Wyatt 01/02/2019 K58.0 Irritable bowel syndrome with diarrhea Gauss, Wyatt 01/02/2019 I87.2 Venous insufficiency (chronic) (peripheral) Gauss, Wyatt 01/02/2019 M79.9 Soft tissue disorder, unspecified Gauss, Wyatt 01/02/2019 M06.849 Other specified rheumatoid arthritis, unspecified hand Gauss, Wyatt 01/02/2019 N40.0 Benign prostatic hyperplasia without lower urinary Gauss, Wyatt tract symptoms 01/02/2019 R00.2 Palpitations Ernestine, Wyatt 10/02/2018 E03.9 Hypothyroidism, unspecified Ernestine, Wyatt 10/02/2018 E78.2 Mixed hyperlipidemia Ernestine, Wyatt 10/02/2018 N40.0 Benign prostatic hyperplasia without lower urinary Ernestine, Wyatt tract sym 10/02/2018 R53.82 Chronic fatigue, unspecified Ernestine, Wyatt 10/02/2018 F41.1 Generalized anxiety disorder Ernestine, Wyatt 10/02/2018 K58.0 Irritable bowel syndrome with diarrhea Ernestine, Wyatt 10/02/2018 I87.2 Venous insufficiency (chronic) (peripheral) Ernestine, Wyatt 10/02/2018 M79.9 Soft tissue disorder, unspecified Wyatt Sinha Plan of Treatment Future Appointment(s):01/22/2019 9:15 am - Nurse at Main Seirzh1401/31/2019 10: 45 am - Wyatt Sinha at Main Ejfstl1401/02/2019 - Wyatt SinhaG60.9 Hereditary and idiopathic neuropathy, eljoqoygrebZ71.9 Hypothyroidism, hbqjmtgtrukD68.82 Chronic fatigue, unspecifiedComments:Discussed importance of proper nutrition, vitamins and rest and interplay of stress and anxiety withsymptom flares. Appropriate medication with monitoring, need for compliance, side effects and followup discussed and care plan implemented.F41.1 Generalized anxiety disorderComments:Discussed treatment strategies and goals and effects of diet, exercise, environment, social stressors and OTC medications and supplements. Importance of medication compliance and follow up with mental health director of career services stressed where appropriate. Generalized symptoms reviewed and noted and monitoring for increase in dysphoria and somatic symptoms discussed. Continued medication use reviewed as appropriate.K58.0 Irritable bowel syndrome with vvpmsppnF95.2 Venous insufficiency (chronic) (peripheral)Comments: Discussed use of Teds as indicated, measures to decrease venous pooling such as leg elevation, skin care and compromise. Monitor as necessary and diuretics if condition worsens with appropriate labs.Referral:Daquan Azul MD, Surgery, General OelpjvadK95.9 Soft tissue disorder, qdlvmgislynL54.849 Other specified rheumatoid arthritis, unspecified handComments:Discussed immunological basis and goals of therapy including symptom control, joint mobility and inflammation minimalization. Role and importance of Rheumatological follow up, medication monitoring andside effects discussed.N40.0 Benign prostatic hyperplasia without lower urinary tract symptomsComments:yearly digital examyearly psaSymptoms and signs reviewed and [...] follow up symptomatically and with EMILY yearly ojtwalrpK73.2 PalpitationsComments:CLEARED BY CARDIOLOGY, still concerned, might benefit from non selective B Angie. will finish w/urecords, holter, ekg Functional Status Description No Information Available Mental Status Description No Information Available Referrals Refer to Reason for Referral Status Appt Date Daquan Azul MD Created [address] [place] [address] [address] [place], [place] [id number] [phone]
--- OUTSIDE RECORDS SUMMARY | 2019-01-23 16:00 | XMS REPORT | Continuity of Care Document ---
:1965 External Reference #:[id number] Author Name Abebe Gupta M.D., [facility] Address [address] [place] [address] Care Team Providers Name Role Phone Robin Carranza MD - Family Care Team Information Dot Etcher Apprentice Medicine Wyatt Sinha MD - Internal Medicine Care Team Information Dot Etcher Apprentice Problems Active Problems Provider Date Chest pain Marian Oscar ANP Onset: 10/22/2015 Sleep apnea Marian Oscar ANP Onset: 10/22/2015 Dizziness and giddiness Marian Oscar ANP Onset: 10/22/2015 Mixed hyperlipidemia Marian Oscar ANP Onset: 10/22/2015 Essential hypertension Abebe Gupta M.D., [facility] Onset: 12/18/2018 Tachycardia Abebe Gupta M.D., [facility] Onset: 12/18/2018 Abdominal pain Eze Elias MD,FACS Onset: 12/21/2017 Skin sensation disturbance Samantha Delaney MD Onset: 11/08/2017 Arthralgia of the upper arm Samantha Delaney MD Onset: 11/08/2017 Social History Type Date Description Comments Sex Unknown Tobacco Use Start: Unknown Never Smoked Cigarettes Smoking Status Reviewed: 12/18/18 Never Smoked Cigarettes ETOH Use Denies alcohol use Tobacco Use Start: Unknown Patient denies history of smoking Exercise Type/Frequency Exercises sporadically Allergies, Adverse Reactions, Alerts Description No Known Drug Allergies Medications Active Medications SIG Qnty Indications Ordering Date Provider Levothyroxine Sodium 1 by mouth Unknown 50mcg every day Tablets Hydroxychloroquine Sulfate 1 by mouth 90tabs Unknown 200mg twice a day Tablets Immunizations Description No Information Available Vital Signs Date Vital Result Comment 12/18/2018 8:53am BP Systolic Sitting Right Arm 138 mmHg BP Diastolic Sitting Right Arm 98 mmHg Heart Rate 80 /min Respiratory Rate 18 /min Height 71 inches 5'11" Weight 198.00 lb BMI (Body Mass Index) 27.6 kg/m2 BSA (Body Surface Area) 2.10 m2 [place] body weight in kilograms 78 kg O2 % BldC Oximetry 96 % Ora 12/21/2017 10:23am BP Systolic 133 mmHg BP Diastolic 80 mmHg Heart Rate 77 /min Respiratory Rate 17 /min Height 71 inches 5'11" Weight 186.00 lb BMI (Body Mass Index) 25.9 kg/m2 BSA (Body Surface Area) 2.04 m2 [place] body weight in kilograms 78 kg O2 % BldC Oximetry 100 % Results Description No Information Available Procedures Date Code Description Status 07/22/2014 76070603 Colonoscopy Completed Medical Devices Description No Information Available Encounters Type Date Location Provider Dx Diagnosis Office Visit 12/18/2018 Cardiology Office Abebe Gupta R00.0 Tachycardia, 8:40a Gabrielle Jung, [facility] unspecified I10 Essential (primary) hypertension Assessments Date Code Description Provider 12/18/2018 R00.0 Tachycardia, unspecified Abebe Gupta M.D., [facility] 12/18/2018 I10 Essential (primary) hypertension Abebe Gupta M.D., [facility] Plan of Treatment 12/18/2018 - Abebe Gupta M.D., FACCR00.0 Tachycardia, unspecifiedComments:His HR average was normal in the Holter. I reassured him.I10 Essential (primary) hypertensionComments:Even during his oscillations the values are normal.AllFollow up:Follow up with us on a PRN basis. Functional Status Functional Condition Comment Date Status Bifocal glasses Active Independent with all ADL's Active Mental Status Description No Information Available Referrals Description No Information Available
--- OUTSIDE RECORDS SUMMARY | 2019-01-23 16:00 | XMS REPORT | Continuity of Care Document ---
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 Problems Description No Information Available Social History [...] Facility Test Result H/L Range Note CBC Auto 01/21/2019 [facility] White Blood 9.7 10^3/uL Normal 3.5-10.[address] Count [place], [place] [address] [phone] Red Blood Count 5.26 10^6/uL Normal 4.18-5.48 Hemoglobin 15.3 g/dL Normal 14.0-18.0 Hematocrit 46 % Normal 42-52 Mean Corpuscular Volume 87 fL Normal 80-94 Mean Corpuscular Hemoglobin 29 pg Normal 27-31 Mean Corpuscular HGB Conc 34 g/dL Normal 31-36 Red Cell Distribution Width 14 % Normal 10-15 Platelet Count 262 10^3/uL Normal 150-450 Mean Platelet Volume 8.8 fL Normal 7.4-10.4 Abs Neutrophils 8.3 10^3/uL High 1.5-7.7 Abs Lymphocytes 0.7 10^3/uL Low 1.0-4.8 Abs Monocytes 0.6 10^3/uL Normal 0-0.8 Abs Eosinophils 0.1 10^3/uL Normal 0-0.6 Abs Basophils 0.0 10^3/uL Normal 0-0.2 Abs Nucleated RBC 0.0 10^3/uL Granulocyte % 85.8 % Lymphocyte % 7.6 % Monocyte % 5.7 % Eosinophil % 0.6 % Basophil % 0.3 % Nucleated Red Blood Cells % 0.1 Laboratory test 01/21/2019 [facility] Uric Acid 4.2 mg/dL Low 4.4-7.6 [address] [place] [address] [phone] C Reactive Protein 7.55 mg/L Normal <8.01 3 Laboratory test 01/17/2019 [facility] Sed Rate By 2 mm/h Normal < Or = finding [address] Modified [address] [place], [place] [address] [place] [address] [phone] Rheumatoid 01/17/2019 [facility] Rheumatoid <14 IU/mL Normal <[address] [address] Panel 5 [phone] Cyclic Citrullinated Peptide (CCP) AB (Igg) >250 units High 4 Interpretation (SEE NOTE) 5 Vitamin 01/17/2019 [facility] Vitamin B12 469 pg/mL Normal 200- 1100 B12/Folate, [address] [place] [address] [phone] Folate, Serum 11.0 ng/mL Normal 6 Laboratory test 01/17/2019 [facility] Creatine 112 U/L Normal 44- [address] Kinase, [place] [address] [phone] General Health 01/17/2019 [facility] TSH 2.67 Normal 0.40-4.[address] [facility] [address] mIU/L [place], [place] [address] [phone] T4, Free 0.9 ng/dL Normal 0.8-1.8 CBC (Includes 01/17/2019 [facility] White 5.3 Thousand/uL Normal 3.8-10.8 Diff/PLT) [address] [place] [address] Count Red Blood Cell Count 5.10 Million/uL Normal 4.20-5.80 Hemoglobin 14.7 g/dL Normal 13.2-17.1 Hematocrit 43.7 % Normal 38.5-50.0 MCV 85.7 fL Normal 80.0-100.0 MCH 28.8 pg Normal 27.0-33.0 MCHC 33.6 g/dL Normal 32.0-36.0 RDW 13.3 % Normal 11.0-15.0 Platelet Count 277 Thousand/uL Normal 140-400 MPV 10.3 fL Normal 7.5-12.5 Absolute Neutrophils 3588 cells/uL Normal 5651-0877 Absolute Lymphocytes 1049 cells/uL Normal 850-3900 Absolute Monocytes 498 cells/uL Normal 200-950 Absolute Eosinophils 122 cells/uL Normal 15-500 Absolute Basophils 42 cells/uL Normal 0-200 Neutrophils 67.7 % Normal 38-80 Lymphocytes 19.8 % Normal 15-49 Monocytes 9.4 % Normal 0-13 Eosinophils 2.3 % Normal 0-8 Basophils 0.8 % Normal 0-2 Comprehensive Metabolic 01/17/2019 [facility] Glucose 95 mg/dL Normal 65-[address] [place], [place] [address] [phone] Urea Nitrogen (BUN) 12 mg/dL Normal 7-25 Creatinine 0.97 mg/dL Normal 0.70-1.33 8 eGFR Non-Afr. Sen[place]e 88 mL/min/1.73m2 Normal > Or = 60 eGFR 101 mL/min/1.73m2 Normal > Or = 60 BUN/Creatinine Ratio NOT APPLICABLE (calc) 6-22 Sodium 140 mmol/L Normal 135-146 Potassium 4.2 mmol/L Normal 3.5-5.3 Chloride 105 mmol/L Normal 98-110 Carbon Dioxide 27 mmol/L Normal 20-32 Calcium 9.1 mg/dL Normal 8.6-10.3 Protein, Total 6.8 g/dL Normal 6.1-8.1 Albumin 4.3 g/dL Normal 3.6-5.1 Globulin 2.5 g/dL(calc) Normal 1.9-3.7 Albumin/Globulin Ratio 1.7 (calc) Normal 1.0-2.5 Bilirubin, Total 0.5 mg/dL Normal 0.2-1.2 Alkaline Phosphatase 73 U/L Normal 40-115 Ast 19 U/L Normal 10-35 Alt 13 U/L Normal 9-46 Laboratory test 01/17/2019 [facility] Enhanced PDF PDF IMAGE finding [address] [place] [address] [id number] [phone] TSH+Free T4 12/25/2018 [facility] TSH 3.62 mIU/L Normal 0.40- [address] 4[address] [place] [address] [phone] T4, Free 1.0 ng/dL Normal 0.8-1.8 Laboratory test 12/25/2018 [facility] Sed Rate By 2 mm/h Normal < Or = finding [address] Modified [address] [place], [place] [id number] [place] [address] [phone] Enhanced PDF Report [id number] PDF IMAGE OFF 1 [id number] Reference Range Negative: <20 Weak Positive: 20-39 Moderate Positive: 40-59 Strong Positive: >59 5 Consistent with rheumatoid arthritis in a patient with polyarthritis. A positive anti-CCP result is frequently found in patients with early rheumatoid arthritis and may be associated with progression of joint destruction. 6 Reference Range Low: <3.4 Borderline: 3.4-5.4 Normal: >5.4 7 Fasting reference interval 8 For patients >49 years of age, the reference limit for Creatinine is approximately 13% higher for people identified as -Senegalese. Procedures Description No Information Available Medical Devices [...] Gauss, Wyatt tract symptoms 01/02/2019 R00.2 Palpitations Gauss, Wyatt 10/02/2018 E03.9 Hypothyroidism, unspecified Gauss, Wyatt 10/02/2018 E78.2 Mixed hyperlipidemia Gauss, Wyatt 10/02/2018 N40.0 Benign prostatic hyperplasia without lower urinary Josephjose antonio Wyatt tract sym 10/02/2018 R53.82 Chronic fatigue, unspecified JosephWyatt brady 10/02/2018 F41.1 Generalized anxiety disorder JosephWyatt brady 10/02/2018 K58.0 Irritable bowel syndrome with diarrhea JosephWyatt brady 10/02/2018 I87.2 Venous insufficiency (chronic) (peripheral) JosephWyatt brady 10/02/2018 M79.9 Soft tissue disorder, unspecified Wyatt Sinha Plan of Treatment Future Appointment(s):02/22/2019 10:30 am - Wyatt Sinha at Main [id number] 9:15 am - Nurse at Main Pdavmy8301/31/2019 9:15 am - Nurse at Main Esxche37 12:00 pm - Wyatt Sinha at Main Waqrta1701/25/2019 10:00 am - Wyatt Sinha at Main Yykopz0601/02/2019 - Wyatt SihnaG60.9 Hereditary and idiopathic neuropathy , gkfnfxgrayvX41.9 Hypothyroidism, okqiuyhamcaK21.82 Chronic fatigue, unspecifiedComments:Discussed importance of proper nutrition, [...] compliance and follow up with mental health resident care associate stressed where appropriate. Generalized symptoms reviewed and noted and monitoring for increase in dysphoria and somatic symptoms discussed. Continued medication use reviewed as appropriate.K58.0 Irritable bowel syndrome with rdlgtjesM75.2 Venous insufficiency (chronic) (peripheral)Comments:Discussed use of Teds as indicated, measures to decrease venous pooling such as leg elevation, skin care and compromise. Monitor as necessary and diuretics if condition worsens with appropriate labs.Referral:Daquan Azul MD, Surgery,General TlbssrjdA58.9 Soft tissue disorder, qooxbduhbaxQ01.849 Other specified rheumatoid arthritis, unspecified handComments:Discussed immunological [...] follow up symptomatically and with EMILY yearly ffmdpwuxL47.2 PalpitationsComments:CLEARED BY CARDIOLOGY, still concerned, might benefit from non selective B Angie. will finish w/urecords, holter, ekg Functional Status Description No Information Available Mental Status Description No Information Available Referrals Refer to Reason for Referral Status Appt Date Daquan Azul MD Closed 01/23/[address] [place] [address] [address] [place], [place] [address] [phone]
== END 2019-01-21 12:59 | disposition home or self-care (01) ==
LOC: UCCORT 10:09
DX: M10.9 Gout, unspecified (principal); M06.9 Rheumatoid arthritis, unspecified; Z88.0 Allergy status to penicillin
CPT/HCPCS: 36415; 84550; 85025; 86140; 99212; G0463